=== PATIENT | female | born 1955 | race Caucasian/White ===

== ENCOUNTER 2021-08-03 14:21 | Emergency (ER) | payer MEDICARE, OTHER ==
[~2021-08-03] VITALS: Ht 170.2 cm; Wt 61.0 kg
[~2021-08-03 14:21] MED LIST: HYDR-2145 PO; HYDR-2868 PO; LISI20TA18 PO
[2021-08-03 14:30] VITALS: BP 138/106
--- NOTE | 2021-08-03 15:08 | RAD ---
CT Head W/O Contrast: History: Reason: UNKNOWN TRAUMA, RIGHT FACIAL BRUISING AND SWELLING / Spl. Instructions: / History: Comparison: none Axial images were obtained without contrast. There is mild diffuse atrophy. There is no mass effect, extraaxial fluid collections or hydrocephalu s. There is no gross bleed. Moderate, patchy periventricular and subcortical white matter hypoattenu ation is seen. There is an old infarct in the anterior limb of the external capsule on the left. Ther e is no focal loss of pemberton-white matter distinction to suggest acute ischemia, i.e. stroke. Impression: 1. Atrophy and chronic white matter changes advanced for the patient's age. 2. 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 End impression CT maxillofacial without contrast History: sinus infection Axial helical images of the face were obtained without contrast. Axial and coronal reconstruction was performed. There is a 3.3 cm x 1.8 cm hyperattenuating mass lateral to the right maxilla. The nasal septum is mostly midline. The ostiomeatal complexes are narrow but patent. The paranasal si nuses are clear. The visualized osseous structures appear intact. The orbits appear normal. Impression: 1. Dense mass lateral to the right maxilla is likely hematoma. 2. No acute bony abnormality detected. End impression PQRS Compliance Statement: One or more of the following individualized dose reduction techniques were utilized for this examinat ion: 1. Automated exposure control 2. Adjustment of the mA and/or kV according to patient size 3. Use of iterative reconstruction technique Electronically signed by: James Raya III, MD (08/03/2021 3:05 PM) [facility]
--- NOTE | 2021-08-03 15:13 | PHYS DOC ---
Past History Past Medical History: Hypertension, Other Past Surgical History: Tubal ligation, Other Alcohol Use: Heavy Drug Use: None General Adult HPI: HPI: Patient is a 66 year old female who presents with right-sided facial swelling an d bruising for the past 3 days. Patient states that she saw her face in the mirror 3 days ago and it was significantly swollen with bruising. She denies having any pain. She she does not remember events leading up to the injury. She lives alone in an independent living apartment at [facility]. She denies use of alcohol and drugs. She reports that short-term memory loss is normal for her. She has no other trauma or injuries. Patient denies use of blood thinners. Review of Systems: Review of Systems: 12 systems reviewed. ROS negative except as mentioned in HPI. Allergies: Allergies: Allergies Coded Allergies Type Severity Reaction Last Updated Verified ciprofloxacin Allergy Severe Swelling 09/16/15 No Physical Exam: PE: Constitutional: Well developed, well nourished, no acute distress, non-toxic appearance. HENT: Right maxillary facial swelling and old bruising, bruising extends down the neck. Bilateral external ears normal, oropharynx moist, no oral exudates, nose normal. Eyes: PERRLA, EOMI, conjunctiva normal, no discharge. Neck: Normal range of motion, no tenderness, supple, no stridor. Cardiovascular: Heart rate regular rhythm, no murmur. Lungs & Thorax: Bilateral breath sounds clear to auscultation. Skin: Warm, dry, no rash, no abrasions, no laceration. Back: No tenderness, no CVA tenderness. Extremities: No tenderness, no cyanosis, no clubbing, ROM intact, no edema. Neurologic: Alert and oriented x3, normal motor function, normal sensory function, no focal deficits noted. Current Patient Data: Vital Signs: VS - Last 72 Hours, by Label Date Time Temp Pulse Resp B/P (MAP) Pulse Ox O2 Delivery O2 Flow Rate FiO2 08/03/21 14:30 97.5 84 20 138/106 (117) 95 Room Air Radiology/Procedures: Radiology/Procedures: PROCEDURE: CT HEAD AND MAXILLOFACIAL WO CT Head W/O Contrast: History: Reason: UNKNOWN TRAUMA, RIGHT FACIAL BRUISING AND SWELLING / Spl. Instructions: / History: Comparison: none Axial images were obtained without contrast. There is mild diffuse atrophy. There is no mass effect, extraaxial fluid collections or hydrocephalus. There is no gross bleed. Moderate, patchy periventricular and subcortical white matter hypoattenuation is seen. There is an old infarct in the anterior limb of the external capsule on the left. There is no focal loss of pemberton-white matter distinction to suggest acute ischemia, i.e. stroke. Impression: 1. Atrophy and chronic white matter changes advanced for the patient's age. 2. 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 End impression CT maxillofacial without contrast History: sinus infection Axial helical images of the face were obtained without contrast. Axial and coronal reconstruction was performed. There is a 3.3 cm x 1.8 cm hyperattenuating mass lateral to the right maxilla. The nasal septum is mostly midline. The ostiomeatal complexes are narrow but patent. The paranasal sinuses are clear. The visualized osseous structures appear intact. The orbits appear normal. Impression: 1. Dense mass lateral to the right maxilla is likely hematoma. 2. No acute bony abnormality detected. End impression PQRS Compliance Statement: One or more of the following individualized dose reduction techniques were utilized for this examination: 1. Automated exposure control 2. Adjustment of the mA and/or kV according to patient size 3. Use of iterative reconstruction technique Electronically signed by: James Raya III, MD (08/03/2021 3:05 PM) [facility] Heart Score: C/O Chest Pain: No Course & Med Decision Making: Course & Med Decision Making Pertinent Labs and Imaging studies reviewed. (See chart for details) Well patient denies alcohol and drug use to me on interview, she reveals to Sherin, nursing staff, that she got drunk the day before she noticed her facial trauma. She reports that she occasionally will drink, and when she drinks she experiences memory loss. CT head reveals advanced white matter atrophy for age, as well as an old infarct. No bony abnormalities are seen in the face. There is a large hematoma on the right side. Patient unable to produce urine sample, and wants to leave. Patient will be discharged without obtaining urinalysis. Dragon Disclaimer: Dragobinna Disclaimer: This electronic medical record was generated, in whole or in part, using a voice recognition dictation system. Departure Departure: Impression: Primary Impression: Facial contusion Qualified Codes: S00.83XA - Contusion of other part of head, initial encounter Additional Impression: Diffuse cerebral atrophy Disposition: HOME / SELF CARE / HOMELESS Condition: STABLE Referrals: ANDREW DALEY APRN (PCP) CHINO WATTS MD Patient Instructions: Facial or Scalp Contusion, [id number], How Much is Too Much Alcohol, [id number] Additional Instructions: No fractures are seen on imaging performed today. You do have a large hematoma on your right cheek. Additionally, your CT head revealed degenerative changes diffusely throughout your brain. This could also contribute to your issues with memory loss. A referral for a neurologist was provided to you today. You may call at your convenience to schedule an appointment for further evaluation and management. In the future, it is advisable to refrain from drinking significant amounts of alcohol, to the point that you are at risk of hurting your self. If you wish, you may seek outpatient treatment for alcohol use disorder. Resources were provided to you today. Please follow-up with your primary care provider or visit one of the clinics on the list provided to resume your blood pressure medication. Please return to the emergency department if you develop pain or any new symptoms. KELBY VAZQUEZ Aug 03, 2021 15:13
== END 2021-08-03 16:30 | disposition home or self-care (01) ==
LOC: ER 14:21
DX: S00.83XA Contusion of other part of head, initial encounter (principal); I10 Essential (primary) hypertension; F10.20 Alcohol dependence, uncomplicated; Y90.9 Presence of alcohol in blood, level not specified; W22.8XXA Striking against or struck by other objects, initial encounter; Y93.89 Activity, other specified; Y92.89 Other specified places as the place of occurrence of the external cause; Y99.8 Other external cause status
CPT/HCPCS: 70450; 70486; 99285-25

== ENCOUNTER 2021-08-07 17:15 | Inpatient (IN) | payer MEDICARE ==
[~2021-08-07] VITALS: Ht 170.2 cm; Wt 57.5 kg
--- NOTE | 2021-08-07 18:12 | PHYS DOC ---
Past History Past Medical History: Hypertension, Other (MARIANNE MOREL APRN) Past Surgical History: Tubal ligation, Other (MARIANNE MOREL APRN) Alcohol Use: Occasionally Drug Use: None (MARIANNE MOREL APRN) General Adult EDM: Chief Complaint: MULTIPLE COMPLAINTS HPI: HPI: Patient is a 66-year-old female who presents to the emergency department following a fall that occurred 6 days ago. Patient attempted to be seen in this emergency department on Tuesday but left without being seen due to the wait. Patient is complaining of left wrist pain she states that the pain is mild notes worse with movement. She states that she has not been able to walk following the fall and has been laying on her couch because she loses balance and falls. Patient states that she has chronic low back pain does not feel that she is having any worsening of her pain. She denies any saddle anesthesias, numbness or tingling down her legs, loss of bowel or bladder. (MARIANNE MOREL APRN) Review of Systems: Review of Systems: : See HPI Musculoskeletal: See HPI Integument: Ecchymosis Neurologic: See HPI (MARIANNE MOREL APRN) Allergies: Allergies: Allergies Coded Allergies Type Severity Reaction Last Updated Verified ciprofloxacin Allergy Severe Swelling 08/03/21 No (MARIANNE MOREL APRN) Physical Exam: PE: Constitutional: Well developed, well nourished, no acute distress, non-toxic appearance. [] HENT: Normocephalic, atraumatic, bilateral external ears normal, oropharynx moist, no oral exudates, nose normal. [] Eyes: PERRL, 4 mm bilaterally, EOMI, conjunctiva normal, no discharge. [] Neck: Normal range of motion, no bony spinal tenderness, supple, no stridor, ecchymosis noted to right anterior aspect of neck and lower face Cardiovascular:Heart rate regular rhythm, no murmur [] Lungs & Thorax: Bilateral breath sounds clear to auscultation [] Abdomen: Bowel sounds normal, soft, no tenderness, no masses, no pulsatile masses. [] Skin: Warm, dry, no erythema, no rash. [] Back: No bony spinal tenderness, normal range of motion, no CVA tenderness. [] Extremities: No tenderness, no cyanosis, no clubbing, ROM intact, no edema. [] Left wrist: Range of motion intact, neuro intact, no obvious deformity, no crepitus, no wounds Neurologic: Alert and oriented X 3, normal motor function, normal sensory function, no focal deficits noted. [] Psychologic: Affect normal, judgement normal, mood normal. [] (MARIANNE MOREL APRN) Current Patient Data: Labs: Laboratory Tests Test 08/07/21 18:37 White Blood Count 11.8 x10^3/uL Red Blood Count 4.96 x10^6/uL Hemoglobin 15.3 g/dL Hematocrit 45.7 % Mean Corpuscular Volume 92 fL Mean Corpuscular Hemoglobin 31 pg Mean Corpuscular Hemoglobin Concent 33 g/dL Red Cell Distribution Width 14.4 % Platelet Count 361 x10^3/uL Neutrophils (%) (Auto) 53 % Lymphocytes (%) (Auto) 36 % Monocytes (%) (Auto) 10 % Eosinophils (%) (Auto) 1 % Basophils (%) (Auto) 0 % Neutrophils # (Auto) 6.2 x10^3uL Lymphocytes # (Auto) 4.2 x10^3/uL Monocytes # (Auto) 1.2 x10^3/uL Eosinophils # (Auto) 0.1 x10^3/uL Basophils # (Auto) 0.0 x10^3/uL Sodium Level 139 mmol/L Potassium Level 3.7 mmol/L Chloride Level 99 mmol/L Carbon Dioxide Level 32 mmol/L Anion Gap 8 Blood Urea Nitrogen 13 mg/dL Creatinine 0.8 mg/dL Estimated GFR (Cockcroft-Gault) 71.5 BUN/Creatinine Ratio 16 Glucose Level 104 mg/dL Calcium Level 9.4 mg/dL Total Bilirubin 2.0 mg/dL Aspartate Amino Transf (AST/SGOT) 51 U/L Alanine Aminotransferase (ALT/SGPT) 34 U/L Alkaline Phosphatase 88 U/L Total Protein 8.4 g/dL Albumin 2.8 g/dL Albumin/Globulin Ratio 0.5 Ethyl Alcohol Level < 10 mg/dL (MARIANNE MOREL APRN) EKG: EKG: [] (MARIANNE MOREL APRN) Radiology/Procedures: Radiology/Procedures: []PROCEDURE: WRIST 3V LEFT Three-view left wrist HISTORY: Pain status post fall AP lateral oblique views The visualized osseous structures appear normal. IMPRESSION: No acute findings. Electronically signed by: Lizzy Cordon III, MD (08/07/2021 6:23 PM) [facility] DICTATED AND SIGNED BY: LIZZY CORDON III, MD DATE: 08/07/211820 CC: EMERGENCY,DEPARTMENT; ANDREW DALEY APRN; MARIANNE MOREL APRN ~MTH0 0 PROCEDURE: CT LUMBAR SPINE WO CONTRAST CT cervical spine without contrast. CT lumbar spine without contrast. PQRS statement: CT scans at this facility use dose reduction including either automated exposure control, iterative reconstructions, and /or weight based radiation dosing via mA and kV modification when appropriate to reduce radiation dose to as low as reasonably achievable. HISTORY: Fall, pain. CT cervical spine findings: Craniocervical junction intact. Cervical vertebral body height and alignment intact. Cervical disc osteophytes and uncovertebral facet spurring. Disc herniation contributing to spinal canal and neural frontal stenoses at several levels particularly severe canal stenosis at C4-C5 through C6-7. Lung apices and paraspinal tissues are unremarkable. Cervical carotid artery calcified plaque. IMPRESSION: No acute osseous injury of the cervical spine. Cervical disc disease as described above. CT lumbar spine findings: Lumbar vertebral body height and alignment intact. No fracture. No suspicious bone lesion. There is discogenic bony sclerosis at L4-5 from chronic degenerative disc disease. No spondylolysis defect. Pulmonary emphysema lung bases. Right renal atrophy. Mild bilateral medullary nephrocalcinosis and tiny 2 mm right renal calculus. Extensive calcified plaque of the aorta and iliac arteries with high-grade stenoses of the bifurcation the aorta and iliac arteries noted. Lumbar paraspinal tissues are unremarkable. Multilevel lumbar disc height loss and disc bulges and facet spurring with spinal canal and neural foraminal stenoses with severe spinal canal stenosis at L4-5, moderate to severe spinal canal stenosis at L3-L4, and mild spinal canal stenosis at L5-S1. IMPRESSION: No acute osseous injury lumbar spine. Lumbar disc disease. See above. Electronically signed by: Macie Brito MD (08/07/2021 6:44 PM) [facility] DICTATED AND SIGNED BY: MACIE BRITO MD DATE: 08/07/21 1837 CC: ANDREW DALEY APRN; MARIANNE MOREL APRN ~MTH0 0 (MARIANNE MOREL APRN) Heart Score: C/O Chest Pain: N/A Risk Factors: Risk Factors: DM, Current or recent (<one month) smoker, HTN, HLP, family history of CAD, obesity. Risk Scores: Score 0 - 3: 2.5% MACE over next 6 weeks - Discharge Home Score 4 - 6: 20.3% MACE over next 6 weeks - Admit for Clinical Observation Score 7 - 10: 72.7% MACE over next 6 weeks - Early Invasive Strategies (MARIANNE MOREL APRN) Course & Med Decision Making: Course & Med Decision Making Pertinent Labs and Imaging studies reviewed. (See chart for details) [] Patient presents to the emergency department via EMS for left wrist pain following a fall that occurred 6 days ago. It appears that patient was seen on August 03 following fall and had facial bones and head CT that showed no acute findings. CT scan of patient's head and neck was performed. X-ray of left wrist was also performed. Patient is reporting chronic low back pain but since patient is having difficulty ambulating a CT scan of her lumbar spine was performed. Patient states that she had a CT scan of her head and facial bones already and refuses CT scan of her head but agreed to the CT scan of her cervical and lumbar spine. Per CREAM HAULER, patient has a history of alcohol use and frequent falls. Blood work performed in the ER. Lab work is mostly unremarkabl e although she was noted to have mild leukocytosis with a white blood cell count of 11.8. Patient attempted to walk in the ER and was unable to ambulate. Patient lives at home alone. I spoke with Dr. Morales who agreed to admit the patient under his services for falls. She may need to be evaluated for possible senior living placement or rehab facility. I discussed patient's findings with her as well as treatment plan admission and she is agreeable to admission at this time. Care transferred at this time and bridge orders placed 2032. (MARIANNE MOREL APRN) Dragon Disclaimer: Dragobinna Disclaimer: This electronic medical record was generated, in whole or in part, using a voice recognition dictation system. (MARIANNE MOREL APRN) Departure Departure: Impression: Primary Impression: Falls Qualified Codes: W19.XXXD - Unspecified fall, subsequent encounter Disposition: ADMITTED INPATIENT Admitting Physician: Akhil Morales (MARIANNE MOREL APRN) Condition: GOOD Referrals: ANDREW DALEY APRN (PCP) Attending Signature Attending Signature I have participated in the care of this patient and I have reviewed and agree with all pertinent clinical information above including history, exam, and recommendations. (MELINDA QUINTANILLA MD) MARIANNE MOREL APRN Aug 07, 2021 18:12 MELINDA QUINTANILLA MD Aug 09, 2021 17:10
--- NOTE | 2021-08-07 18:25 | RAD ---
Three-view left wrist HISTORY: Pain status post fall AP lateral oblique views The visualized osseous structures appear normal. IMPRESSION: No acute findings. Electronically signed by: James Raya III, MD (08/07/2021 6:23 PM) [facility]
--- NOTE | 2021-08-07 18:47 | RAD ---
CT cervical spine without contrast. CT lumbar spine without contrast. PQRS statement: CT scans at this facility use dose reduction including either automated exposure cont rol, iterative reconstructions, and /or weight based radiation dosing via mA and kV modification when appropriate to reduce radiation dose to as low as reasonably achievable. HISTORY: Fall, pain. CT cervical spine findings: Craniocervical junction intact. Cervical vertebral body height and alignm ent intact. Cervical disc osteophytes and uncovertebral facet spurring. Disc herniation contributing to spinal canal and neural frontal stenoses at several levels particularly severe canal stenosis at C 4-C5 through C6-7. Lung apices and paraspinal tissues are unremarkable. Cervical carotid artery calci fied plaque. IMPRESSION: No acute osseous injury of the cervical spine. Cervical disc disease as described above. CT lumbar spine findings: Lumbar vertebral body height and alignment intact. No fracture. No suspicio us bone lesion. There is discogenic bony sclerosis at L4-5 from chronic degenerative disc disease. No spondylolysis defect. Pulmonary emphysema lung bases. Right renal atrophy. Mild bilateral medullary nephrocalcinosis and tiny 2 mm right renal calculus. Extensive calcified plaque of the aorta and fifi c arteries with high-grade stenoses of the bifurcation the aorta and iliac arteries noted. Lumbar par aspinal tissues are unremarkable. Multilevel lumbar disc height loss and disc bulges and facet spurri ng with spinal canal and neural foraminal stenoses with severe spinal canal stenosis at L4-5, moderat e to severe spinal canal stenosis at L3-L4, and mild spinal canal stenosis at L5-S1. IMPRESSION: No acute osseous injury lumbar spine. Lumbar disc disease. See above. Electronically signed by: Aleksandr Brito MD (08/07/2021 6:44 PM) [facility]
[2021-08-07 19:07] LABS: BASO % 0 % (0-3); EOS # 0.1 x10^3/uL (0.0-0.7); EOS % 1 % (0-3); HEMATOCRIT 45.7 % (36.0-47.0); HEMOGLOBIN 15.3 g/dL (12.0-15.5); LYMPH # 4.2 x10^3/uL (1.0-4.8); LYMPH % 36 % (24-48); MEAN CORPUSCULAR HEMOGLOBIN 31 pg (25-35); MEAN CORPUSCULAR HGB CONC 33 g/dL (31-37); MEAN CORPUSCULAR VOLUME 92 fL (79-100); MONO # 1.2 x10^3/uL (0.0-1.1); MONO % 10 % (0-9); NEUT # 6.2 x10^3uL (1.8-7.7); NEUT % 53 % (31-73); PLATELET COUNT 361 x10^3/uL (140-400); RED BLOOD COUNT 4.96 x10^6/uL (3.50-5.40); RED CELL DISTRIBUTION WIDTH 14.4 % (11.5-14.5); WHITE BLOOD COUNT 11.8 x10^3/uL (4.0-11.0)
[2021-08-07 19:14] LABS: CALCIUM 9.4 mg/dL (8.5-10.1); CREATININE 0.8 mg/dL (0.6-1.0); GFR 71.5; POTASSIUM 3.7 mmol/L (3.5-5.1)
[2021-08-07 19:20] LABS: ALBUMIN 2.8 g/dL (3.4-5.0); ALBUMIN/GLOBULIN RATIO 0.5 (1.0-1.7); TOTAL PROTEIN 8.4 g/dL (6.4-8.2)
--- NOTE | 2021-08-07 21:25 | NUR ---
The patient, OSMANY GAMBOA, 66 y/o, F admitted by CICI VILLALBA MD, was given written information regarding hospital policies, unit procedures and contact persons. Valuables were checked and left with patient.
[2021-08-07 21:57] LABS: AMPHETAMINE/METHAMPHETAMINE NEG (NEG); BARBITURATES NEG (NEG); BENZODIAZEPINES NEG (NEG); CANNABINOIDS NEG (NEG); COCAINE NEG (NEG); METHADONE NEG (NEG); OPIATES NEG (NEG); PHENCYCLIDINE NEG (NEG)
[2021-08-07] MEDS ORDERED: LISINOPRIL 20 MG TABLET PO SCH (22:00)
[2021-08-07] MEDS ORDERED: ATENOLOL 50 MG TABLET PO ONE (22:00)
[2021-08-07 22:03] LABS: BACTERIA,URINE MANY /HPF (0-FEW); BILIRUBIN,URINE NEG (NEG); CLARITY,URINE CLOUDY; COLOR,URINE YELLOW; GLUCOSE,URINE NEG (NEG); NITRITE,URINE POS (NEG); RBC,URINE OCC /HPF (0-2); SQUAMOUS EPITHELIAL CELL,UR FEW /LPF
[2021-08-07] MEDS: LISINOPRIL 20 MG TABLET PO SCH (22:41)
[2021-08-07 22:58] VITALS: BP 219/216
[2021-08-08 00:22] VITALS: BP 127/95
--- NOTE | 2021-08-08 02:35 | NUR ---
ED reports untreated elevated BP of 229/121 at time of transfer, similar results on arrival to unit; notified, medications given as ordered; BP 125/95 at one hour recheck; very poor historian, states she was prescribed HTN meds but has not refilled in one year, states she does not currently have a doctor and does not know "how to get one"; states for the past week she has been lying on couch at home, using bucket to urinate, however today she was incontinent on the couch as she was unable to stand or transfer herself; reports multiple recent falls at home, extensive bruising noted over entire body and face; ED reports unsuccessful trial of using bedside commode, unable to bear weight or assist; #16 fr koch cath inserted, tolerated well, approx 300ml cloudy yellow urine returned, sample collected and sent to lab; Case mgmt consult ordered to address home safety and self care deficit concerns.
[2021-08-08 03:57] VITALS: BP 151/87
[2021-08-08 07:42] LABS: BASO # 0.1 x10^3/uL (0.0-0.2); BASO % 1 % (0-3); EOS # 0.2 x10^3/uL (0.0-0.7); EOS % 2 % (0-3); HEMATOCRIT 41.2 % (36.0-47.0); LYMPH # 3.4 x10^3/uL (1.0-4.8); LYMPH % 32 % (24-48); MEAN CORPUSCULAR HEMOGLOBIN 31 pg (25-35); MEAN CORPUSCULAR HGB CONC 34 g/dL (31-37); MEAN CORPUSCULAR VOLUME 91 fL (79-100); MONO # 1.1 x10^3/uL (0.0-1.1); MONO % 11 % (0-9); NEUT # 5.9 x10^3uL (1.8-7.7); NEUT % 55 % (31-73); PLATELET COUNT 342 x10^3/uL (140-400); RED BLOOD COUNT 4.51 x10^6/uL (3.50-5.40); RED CELL DISTRIBUTION WIDTH 13.9 % (11.5-14.5); WHITE BLOOD COUNT 10.6 x10^3/uL (4.0-11.0)
[2021-08-08 07:59] LABS: ALBUMIN 2.3 g/dL (3.4-5.0); ALBUMIN/GLOBULIN RATIO 0.5 (1.0-1.7); CALCIUM 8.4 mg/dL (8.5-10.1); CREATININE 0.7 mg/dL (0.6-1.0); GFR 83.5; TOTAL BILIRUBIN 1.3 mg/dL (0.2-1.0)
[2021-08-08 08:04] VITALS: BP 136/71
[2021-08-08 08:05] LABS: POTASSIUM 2.8 mmol/L (3.5-5.1)
[2021-08-08] MEDS: ATENOLOL 50 MG TABLET PO SCH ×2 (08:11→09:19)
[2021-08-08] MEDS ORDERED: MAGNESIUM SULFATE 1GM 100 ML IV ONE (08:30)
[2021-08-08] MEDS: POTASSIUM CHLORIDE 20 MEQ TABLET.ER. PO SCH ×2 (09:18→20:40)
[2021-08-08] MEDS: LISINOPRIL 20 MG TABLET PO SCH (09:19)
--- NOTE | 2021-08-08 09:19 | HP ---
DATE OF SERVICE: 08/08/2021 ADMIT DATE: 08/07/2021 ATTENDING PHYSICIAN: Dr. Morales. CHIEF COMPLAINT: Weakness. HISTORY OF PRESENT ILLNESS: The patient is a 66-year-old female who is a chronic alcoholic. She fell at home. She has been sitting in her chair, unable to get up. She has a bucket for urine. She has also soiled herself and wallowing in her own filth. She is quite debilitated. She has chronic neuropathy. She is admitted then for further treatment and evaluation. She also has noncompliance. She says she has quit drinking a year ago. She is a heavy smoker, a pack of cigarettes a day. Her blood pressure was markedly elevated. She is not on any BP meds in over a year. PAST MEDICAL HISTORY: Significant for essential hypertension, tubal ligation, chronic alcoholism, frequent falls and generalized debilitation. ALLERGIES: SHE HAS ALLERGIES TO CIPROFLOXACIN, EXACT REACTION IS UNCLEAR. CURRENT MEDICATIONS: None. She states that she saw a doctor on the [place] side, but has not had followup. FAMILY HISTORY: Noncontributory. REVIEW OF SYSTEMS: Significant for the recent fall. She has various stages of ecchymosis from previous trauma. Her CT of the head was unremarkable for any acute bleeds. She has COPD. Her appetite is poor. All other systems reviewed and turned out to be negative. PHYSICAL EXAMINATION: GENERAL: When I saw her, this is a cachectic female who appears older than her stated age. VITAL SIGNS: Initial vital signs in the hospital, she had a recorded blood pressure of 216/116. After treatment with the medication, it came down. This morning it is down to 136/71, pulse is 78 and regular. She is afebrile. Oxygen saturation 96% on room air. HEENT: Head is without trauma. There is old ecchymosis along the right face and jaw from previous injury. Oropharynx is clear. Poor dental repair. NECK: Supple, no bruits. LUNGS: Shallow respirations. Minimal rhonchi in the upper airways. CARDIOVASCULAR: Showed regular heart tones. No gallops. ABDOMEN: Soft. EXTREMITIES: Without edema. NEUROLOGIC: Focally intact. Speech is fluent. She is sober. There is no impending DTs. She is nevertheless weak and cannot ambulate independently. PERTINENT LABORATORY STUDIES: The hemoglobin is 15.3 g/dL, white count 11,800. Electrolytes: Sodium 139 mEq, potassium 3.7 mEq, creatinine 0.8. Got fasting blood sugar of 129. Total bilirubin is 2, repeated was down to 1.3. Transaminases were normal. Cervical spine CT and wrist x-ray showed no acute long bone fractures. ASSESSMENT: 1. 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 2. Chronic alcoholism. 3. Labile hypertension. 4. Noncompliance of meds. 5. Underlying depression with anxiety. 6. Generalized debility and neglect. PLAN: 1. Admit to the inpatient unit. 2. Potassium and magnesium replacement. 3. I have restarted blood pressure meds for now and her pressures are better controlled in a stable environment. 4. Diet as tolerated. 5. 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 We will start looking the first thing Tuesday morning. She has a do not resuscitate order per advanced directive, we will respect her wishes. SANDRA DR: Deysi TID: [id number]
[2021-08-08] MEDS: NICOTINE 21MG PATCH. TD SCH (10:40)
[2021-08-08 11:25] VITALS: BP 135/82
[2021-08-08 15:25] VITALS: BP 114/74
[2021-08-08 20:27] VITALS: BP 149/78
[2021-08-09 06:36] VITALS: BP 132/83
[2021-08-09] MEDS: POTASSIUM CHLORIDE 20 MEQ TABLET.ER. PO SCH ×2 (07:40→20:48)
[2021-08-09] MEDS: NICOTINE 21MG PATCH. TD SCH (07:41)
[2021-08-09 07:56] LABS: BASO % 0 % (0-3); EOS # 0.2 x10^3/uL (0.0-0.7); EOS % 2 % (0-3); HEMATOCRIT 42.5 % (36.0-47.0); HEMOGLOBIN 14.3 g/dL (12.0-15.5); LYMPH # 3.8 x10^3/uL (1.0-4.8); LYMPH % 34 % (24-48); MEAN CORPUSCULAR HEMOGLOBIN 31 pg (25-35); MEAN CORPUSCULAR HGB CONC 34 g/dL (31-37); MEAN CORPUSCULAR VOLUME 93 fL (79-100); MONO % 9 % (0-9); NEUT # 6.1 x10^3uL (1.8-7.7); NEUT % 54 % (31-73); PLATELET COUNT 357 x10^3/uL (140-400); RED BLOOD COUNT 4.59 x10^6/uL (3.50-5.40); RED CELL DISTRIBUTION WIDTH 14.4 % (11.5-14.5); WHITE BLOOD COUNT 11.2 x10^3/uL (4.0-11.0)
[2021-08-09 07:57] LABS: CALCIUM 8.6 mg/dL (8.5-10.1); CREATININE 0.9 mg/dL (0.6-1.0); GFR 62.5; POTASSIUM 3.8 mmol/L (3.5-5.1)
--- NOTE | 2021-08-09 08:47 | PN ---
DATE: 08/09/2021 ATTENDING PHYSICIAN: Dr. Morales. SUBJECTIVE: No new complaints. She slept well. OBJECTIVE FINDINGS: VITAL SIGNS: Blood pressure this morning is 132/82, pulse is 60 and regular. She is afebrile. Oxygen saturation 94% on room air. HEENT: Head is without trauma. Pupils are reactive. Sclerae nonicteric. Oropharynx is clear. The bruising, ecchymosis on the right side of the face is starting to fade and dissipating. Swelling is down. NECK: Supple, no bruits. LUNGS: Clear. CARDIOVASCULAR: Showed regular heart tones. No gallop. ABDOMEN: Soft. EXTREMITIES: Without edema. NEUROLOGIC: Very weak. She is unable to ambulate by herself. LABORATORY DATA: Pertinent laboratories, her potassium was replaced up to 3.8 mEq per liter. Creatinine 0.9 mg percent. ASSESSMENT: 1. 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 2. Chronic alcoholism. 3. Labile hypertension, improved in a controlled setting. 4. Noncompliance of meds. 5. Underlying depression with anxiety. 6. Chronic obstructive pulmonary disease. 7. Generalized debility and neglect. PLAN: 1. Continue potassium and magnesium replacement. 2. Blood pressure meds restarted. 3. Diet as tolerated. 4. client operations manager will come in tomorrow to look for subacute rehab placement. She obviously cannot go home by herself. ADRIAN DR: Deysi TID: [id number]
[2021-08-09] MEDS: ATENOLOL 50 MG TABLET PO SCH (08:57)
[2021-08-09 10:50] VITALS: BP_SYST 118; BP_SYST 131; BP_DIAS 68; BP_DIAS 71
[2021-08-09] MEDS: CEPHALEXIN 250 MG CAPSULE PO SCH ×2 (12:49→20:48)
[2021-08-09 15:53] VITALS: BP 126/68
[2021-08-09 19:52] VITALS: BP 135/84
[2021-08-09] MEDS: LACTOBACILLUS RHAMNOSUS GG 1 CAPSULE. PO SCH (20:48)
[2021-08-10] MEDS: LISINOPRIL 20 MG TABLET PO SCH (08:35)
[2021-08-10] MEDS: POTASSIUM CHLORIDE 20 MEQ TABLET.ER. PO SCH ×2 (08:35→19:43)
[2021-08-10] MEDS: LACTOBACILLUS RHAMNOSUS GG 1 CAPSULE. PO SCH ×2 (08:36→19:43)
[2021-08-10] MEDS: ATENOLOL 50 MG TABLET PO SCH (08:36)
[2021-08-10] MEDS: CEPHALEXIN 250 MG CAPSULE PO SCH ×3 (08:36→19:43)
[2021-08-10] MEDS: NICOTINE 21MG PATCH. TD SCH (08:40)
[2021-08-10] MEDS ORDERED: levoFLOXacin 250 MG TABLET PO SCH (09:00)
--- NOTE | 2021-08-10 09:07 | PN ---
DATE: 08/10/2021 ATTENDING PHYSICIAN: Dr. Morales. SUBJECTIVE: The patient is alert. She has very little insight as to what she can and cannot do. She still cannot get up independently. She remains very weak. OBJECTIVE FINDINGS: VITAL SIGNS: Blood pressure is 135/84, pulse 73 and regular, oxygen saturation 95% on room air. She is afebrile. HEENT: Head is without trauma. Pupils are reactive. Sclerae nonicteric. There is varying degrees of ecchymosis on the entire right side of the face extending down to the neck. This is from a previous traumatic incident. LUNGS: Clear. There is minimal rhonchi. CARDIOVASCULAR: Showed regular heart tones. No gallops. ABDOMEN: Soft. EXTREMITIES: Show muscle wasting. King catheter is in place. ASSESSMENT: 1. 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 2. Chronic alcoholism. 3. Labile hypertension, improved in a controlled setting. 4. Noncompliance of medications. 5. Underlying depression. 6. Chronic obstructive pulmonary disease. 7. Generalized debility. 8. 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 PLAN: 1. Continue electrolyte replacement. 2. Blood pressure meds. 3. Diet as tolerated. 4. She cannot go home. There is no safe discharge plan. Physical Therapy will see her today. We will try to get her into a local snf for now. 5. Remove King catheter. Adult diapers. GEORGE/KWAKU DR: Deysi TID: [id number]
--- NOTE | 2021-08-10 11:12 | DS ---
DATE OF DISCHARGE: 08/10/2021 ATTENDING PHYSICIAN: Dr. Morales. FINAL DISCHARGE DIAGNOSES: 1. Alcoholic neuropathy. 2. Generalized debilitation. 3. Chronic alcoholism. 4. Labile hypertension, controlled. 5. Noncompliance of meds. 6. Underlying depression. 7. Chronic obstructive pulmonary disease. 8. Periods of amnesia due to underlying alcohol use. HISTORY AND PHYSICAL: This is a 66-year-old female who paramedics found lying in her own urine and stool. She was so weak she could get out of chair. She was admitted for further treatment and evaluation. She has been noncompliant with meds. The blood pressure was also elevated on admission. PHYSICAL EXAMINATION: Please see my dictated note. PERTINENT LABORATORY AND X-RAY STUDIES: On this admission included a hemoglobin of 15.3 g/dL, white count 11,800. Electrolytes within range. Potassium on admission was 3.7, came down to 2.8 mEq replaces up to 3.8 mEq per liter, sodium 134. Sugars were adequate. Creatinine 0.9 mg percent. Transaminases showed a slight elevation in bilirubin was 2.0. COURSE IN THE HOSPITAL: The patient was admitted. She was started on blood pressure meds. She did well. Physical therapy was able to work with her. She is able to ambulate with some 1:1 assistance. Because of her generalized weakness, she was agreeable to go to a nursing facility. Arrangements were then made for [place] [facility]. Her meds are simple, but have been able to control her blood pressure today included the following: She will continue her scheduled hydralazine 25 mg q.i.d., lisinopril 20 mg p.o. daily and hydrochlorothiazide 25 mg p.o. daily. Strong encouragement to avoid further alcohol and tobacco use, whether or not she will quit drinking, smoking remains to be seen. She is a DNR per advanced directive. The patient was then discharged from our hospital in stable condition with explicit drug and followup care. Total discharge time spent 39 minutes. GEORGE/FABIO AYON: GEORGE/angie TID: [id number]
[2021-08-10 11:20] VITALS: BP 150/84
--- NOTE | 2021-08-10 14:58 | NUR ---
Nursing note : Pt is alert and oriented currently sitting in chair independently eating and drinking lunch. Pt has been compliant with medications and calling for assistance when needed. Pt ambulated with stand by assist for this nurse this shift. Pt has been pleasant for this nurse this shift.
[2021-08-10 15:46] VITALS: BP 143/79
[2021-08-10 19:51] VITALS: BP 141/88
[2021-08-11] MEDS: LACTOBACILLUS RHAMNOSUS GG 1 CAPSULE. PO SCH (08:55)
[2021-08-11] MEDS: CEPHALEXIN 250 MG CAPSULE PO SCH (08:56)
[2021-08-11] MEDS: LISINOPRIL 20 MG TABLET PO SCH (08:56)
[2021-08-11] MEDS: ATENOLOL 50 MG TABLET PO SCH (08:56)
[2021-08-11] MEDS: POTASSIUM CHLORIDE 20 MEQ TABLET.ER. PO SCH (08:59)
[2021-08-11] MEDS: NICOTINE 21MG PATCH. TD SCH (08:59)
[2021-08-11 11:20] VITALS: BP 134/87
--- NOTE | 2021-08-11 12:13 | NUR ---
Discharge note Pt discharged at 1211 via wheel chair accompanied by transportation to [facility]
== END 2021-08-11 12:13 | DRG 74 ==
LOC: ER 17:15 → 1 SOUTH 20:26 → UNDODISIN 08-09 19:00
PROVIDERS: ADMIT Hospitalist; ATTEND Hospitalist
DX: G62.1 Alcoholic polyneuropathy (principal); E83.59 Other disorders of calcium metabolism; F10.26 Alcohol dependence with alcohol-induced persisting amnestic disorder; F17.200 Nicotine dependence, unspecified, uncomplicated; F41.8 Other specified anxiety disorders; G89.29 Other chronic pain; I10 Essential (primary) hypertension; J43.9 Emphysema, unspecified; M48.061 Spinal stenosis, lumbar region without neurogenic claudication; M48.07 Spinal stenosis, lumbosacral region; Z66 Do not resuscitate; Z79.899 Other long term (current) drug therapy; Z91.14 Patient's other noncompliance with medication regimen; Z98.51 Tubal ligation status; Z88.1 Allergy status to other antibiotic agents; Z20.822 Contact with and (suspected) exposure to COVID-19
CPT/HCPCS: 36415; 72125; 72131; 73110; 80048; 80053; 80307; 81001; 82947; 85025; 87077; 87086; 87186; 87426; 99406; G0480; J3475; U0003; 97530; 99285-25

== ENCOUNTER 2021-08-16 05:36 | Inpatient (IN) | payer MEDICARE ==
[~2021-08-16] VITALS: Ht 170.2 cm; Wt 56.2 kg
[2021-08-16] VITALS (12 sets, daily range): BP systolic 141–177; BP diastolic 70–98
--- NOTE | 2021-08-16 05:52 | PHYS DOC ---
Past History Past Medical History: Hypertension, Other (OMID XIAO MD) Past Surgical History: Tubal ligation, Other (OMID XIAO MD) Alcohol Use: Occasionally Drug Use: None (OMID XIAO MD) Adult General Chief Complaint Chief Complaint: ALTERED MENTAL STATUS HPI HPI Patient is a 66-year-old female with a past medical history significant for dementia, COPD, hypertension, and alcohol abuse as well as anxiety and dep ression who presents with a chief complaint from her prison of confusion. Per prison staff she seemed a little more tired and seems confused over her baseline. Nursing staff denied any recent traumas, fevers or illnesses at their are aware of. Patient denies headache, change in vision, chest pain, abdominal pain, nausea, vomiting, diarrhea, dysuria, hematuria. Does endorse some productive cough. Denies any recent travel, known ill contacts. Denies any numbness/weakness/tingling. States that she usually gets around with a walker but is having some more generalized fatigue/weakness than usual and has been falling. (OMID XIAO MD) Review of Systems Review of Systems Review of systems otherwise unremarkable except noted in HPI (OMID XIAO MD) Allergies Allergies Allergies Coded Allergies Type Severity Reaction Last Updated Verified ciprofloxacin Allergy Severe Swelling 08/07/21 No (OMID XIAO MD) Physical Exam Physical Exam Constitutional: Well developed, well nourished, no acute distress, non-toxic appearance. [] HENT: Normocephalic, atraumatic, bilateral external ears normal, oropharynx dry, no oral exudates, nose normal. [] Eyes: PERRLA, EOMI, conjunctiva normal, no discharge. [] Neck: Normal range of motion, no tenderness, supple, no stridor. [] Cardiovascular: Tachycardia Lungs & Thorax: Global bilateral rhonchi and congestion with no wheeze, tachypnea Abdomen: soft, no tenderness, no masses, no pulsatile masses. [] Skin: Warm, dry, no erythema, no rash. [] Back: No tenderness, no CVA tenderness. [] Extremities: No tenderness, no cyanosis, no clubbing, ROM intact, no edema. [] Neurologic: Alert and oriented to person, place and time, able to move all 4 extremities, 4 out of 10 strength, sensation in all extremities to touch, cranial nerves intact, able to sit/stand with help, and could not do it on her own Psychologic: Affect normal,mood normal. [] (OMID XIAO MD) EKG EKG [] (OMID XIAO MD) Radiology/Procedures Radiology/Procedures [] (OMID XIAO MD) Impressions: CTA head and neck with contrast dated 08/16/2021 Comparison: Noncontrast head CT dated 08/03/2021 CLINICAL INDICATION: Altered mental status Technique: a CTA of the head and neck was acquired following the intravenous administration of 75 cc Omnipaque 350. Thin cut coronal and sagittal MIPS reconstructions and 3-D rotational reconstruction. One or more of the following individualized dose reduction techniques were utilized for this examination: 1. Automated exposure control 2. Adjustment of the mA and/or kV according to patient size 3. Use of iterative reconstruction technique. Carotid Stenosis calculations for CT, MR, and conventional angiography are based upon measurements of the distal ICA diameter in accordance with the NASCET methodology. Stenosis calculations for carotid ultrasound studies are derived from validated velocity criteria which are known to correlate with the NASCET methodology. FINDINGS: Contrast bolus is adequate. There is mild to moderate grade narrowing of the left subclavian artery origin, estimated at about 40-50 percent stenosis. Bilateral subclavian arteries are otherwise patent. Calcific plaque of the proximal right vertebral artery resulting in estimated estimated 60-70 percent stenosis. There is also calcific plaque at the origin of the left vertebral with estimated 60-70 percent proximal stenosis. Scattered calcific plaque along the bilateral vertebral arteries with multifocal areas of mild to moderate narrowing to the level the skull base. The left vertebral is somewhat hypoplastic relative to the right side and appears to end in PICA. The intradural right vertebral artery is patent. Basilar artery is well formed. Bilateral CAMPUS MONITOR are patent. There is moderate grade narrowing of the proximal right CAMPUS MONITOR estimated at about 50-60 percent stenosis. Bovine origin of the left common carotid artery with mild calcific plaque at the origin resulting in mild proximal narrowing. Bilateral common carotid arteries are otherwise patent. There is calcific plaque at the bilateral carotid bifurcation and proximal bilateral ICA. This results in mild narrowing bilaterally, estimated at about 30-40 percent on both sides. The internal carotid arteries are otherwise patent to the skull base. There is fairly dense calcific plaque at the cavernous internal carotid artery on the left with mild plaquing on the right. No high-grade stenosis. Mild to moderate narrowing of the cavernous left ICA. The MAXIMILIANO and left MCA branches are patent. There is a patent anterior communicating artery. There is proximal occlusion of the MCA on the right with minimal filling of distal branches. No apparent aneurysm. Diminished enhancement of the MCA territory on the right. Moderate chronic small vessel ischemic changes with remote lacunar infarcts of the left external capsule/basal ganglia, unchanged. Soft tissue hematoma or mass at the right cheek is similar to prior study. Visualized soft tissue structures are otherwise unremarkable. Limited images of the lung apices show moderate emphysema. No acute bony abnormality. Multilevel spondylosis. IMPRESSION: 1. There is a proximal MCA occlusion on the right with a few collateral vessels in the region. Diminished perfusion of the right hemisphere relative the left side. This could be related to acute embolus. Correlate clinically. 2. Scattered atherosclerotic plaquing with estimated 30-40 percent stenosis of the proximal internal carotid arteries bilaterally. 3. Estimated 60-70 percent stenosis of the bilateral proximal vertebral arteries. 4. Estimated 50-60 percent stenosis of the proximal CAMPUS MONITOR on the right. 5. Mild to moderate narrowing of the bilateral cavernous internal carotid arteries, left greater than right. 6. Mild to moderate chronic small vessel ischemic changes and atrophy. Results discussed with ER physician at approximately 9:00 AM on the day of study. Electronically signed by: David Pulliam MD (08/16/2021 9:11 AM) [id number] DICTATED AND SIGNED BY: DAVID PULLIAM MD DATE: 08/16/21 0840 CC: CHANNING ALCANTARA DO; OMID XIAO MD; ANDREW DALEY SUMMER LAW CLERK ~MTH0 0 CT chest abdomen pelvis without contrast dated 08/16/2021. No comparison available. CLINICAL INDICATION: Pain after fall. TECHNIQUE: Contiguous axial imaging the chest abdomen pelvis performed without the administration of IV or oral contrast. One or more of the following individualized dose reduction techniques were utilized for this examination: 1. Automated exposure control 2. Adjustment of the mA and/or kV according to patient size 3. Use of iterative reconstruction technique. FINDINGS: Heart size is mildly enlarged. No significant pericardial effusion. Coronary artery calcifications. Borderline enlarged right paratracheal and free carinal lymph nodes measuring up to 8 mm short axis. No axillary or supraclavicular lymphadenopathy. Thyroid gland is unremarkable. Central airways are patent. Linear bands of increased density at both lung bases, likely scar or atelectasis. There is a noncalcified pulmonary nodule in the right middle lobe on image 70 measures 5 mm. There is also a small subpleural density in the right upper lobe laterally on image 51 that measures about 3 mm. No consolidation or pleural effusion. No pneumothorax. Mild to moderate emphysema. Solid abdominal viscera not well evaluated in the absence of contrast material. No apparent attenuation abnormality of the liver or spleen. Gallbladder unremarkable. Pancreas, adrenal glands unremarkable. The right kidney is atrophic. There is some faint calcifications along the medullary pyramids. A 2 mm calcific stone is noted at the right kidney lower pole. No ureteral stone or hydronephrosis. Unopacified GI tract normal in caliber and contour. No bowel wall thickening. No inflammatory stranding in the mesentery. Appendix normal in caliber. No ascites or lymphadenopathy. There is dense atherosclerotic calcifications of the abdominal aorta with probable high-grade narrowing of the aortic bifurcation and/or proximal common iliac arteries, not well evaluated in the absence of c ontrast material. No periaortic fluid collection. No aneurysm. Images of pelvis show nondistended urinary bladder. There is a small bubble of gas in the bladder lumen. Uterus and adnexa are unremarkable. No significant free fluid. No pelvic adenopathy. Bone windows show no acute finding. Moderate to severe degenerative change at the right hip joint with mild degenerative change in the left. No apparent rib fracture. Multilevel thoracic and lumbar spondylosis. IMPRESSION: 1. No traumatic abnormality of chest abdomen pelvis. 2. Mild to moderate emphysema with bibasilar scar or atelectasis. 3. There are couple of small noncalcified pulmonary nodules on the right, nonspecific. Follow-up imaging may be warranted to ensure stability. 4. Findings suggestive of medullary nephrocalcinosis with small noncalcified stone at the lower pole right kidney. The right kidney is atrophic. 5. Dense atherosclerotic changes of the distal abdominal aorta and bilateral proximal common iliac arteries. A high-grade stenosis cannot be excluded. If indicated, CTA could better evaluate. Electronically signed by: David Pulliam MD (08/16/2021 8:39 AM) [id number] DICTATED AND SIGNED BY: DAVID PULLIAM MD DATE: 08/16/21830 CC: CHANNING ALCANTARA DO; OMID XIAO MD; ANDREW DALEY SUMMER LAW CLERK ~MTH0 0 (CHANNING ALCANTARA DO) Heart Score C/O Chest Pain: No Risk Factors: Risk Factors: DM, Current or recent (<one month) smoker, HTN, HLP, family hi story of CAD, obesity. Risk Scores: Risk Factors: DM, Current or recent (<one month) smoker, HTN, HLP, family history of CAD, obesity. (OMID XIAO MD) Course & Med Decision Making Course & Med Decision Making Patient is a 66-year-old female who presents from prison with a chief complaint of generalized weakness, and reported confusion from prison staff Vital signs notable for tachycardia and hypertension. Physical exam noted above. Patient placed on monitor with IV access established and IV fluid resuscitation begun as patient does appear dry. [] (OMID XIAO MD) Course & Med Decision Making The patient's labs are essentially unremarkable except for lactic acid of 2.4. She appears clinically dry and we are giving the patient IV fluids. Urinalysis is negative for infection. Her EKG is significant for atrial fibrillation. Based on the history provided from her care facility this appears to be a new finding. I will place her on a Cardizem drip as her heart rate is persistently in the high 120s and 130s. CT scans are pending. The patient has been quite sleepy since shift change, but she has been moving around but I did not take note of which extremities are moving. CT angiogram of the head and neck shows significant occlusion of the right MCA. I went in to further evaluate the patient and she has significant flaccidity of the left upper and lower extremity. She is also not answering questions very well. We contacted the prison that she came from and only being alert to herself and answering her birthday is normal. She does not frequently speak very much or answer questions. They did state that she was able to walk until 12 August. She could not walk on that day, but was able to walk on the . The patient was noted to be able to walk yesterday but no exact time was given. It does not sound like they noticed any profound weakness on the left side as we currently see. I am going with the assumption that this occlusion is within the last 24 hours. We are contacting family for guidance about her care as she is unable to answer these questions for us. We have been unable to get a hold of family. Review of the patient's chart at this facility indicates that she has been DNR. Given that status and the fact that we cannot accurately determine last known well or the timing of this MCA occlusion, I do not believe the patient should be transferred to another facility for consideration of thrombectomy. There is really no way for me to determine whether or not she qualifies and is likely that she does not. It is also likely this is not the family's wishes. I will admit the patient to the hospital. I spoke with Dr. Oreilly and he has accepted the patient for admission. The patient is a candidate for anticoagulation due to new onset A. fib. I discussed this with both Dr. Bazzi, neurosurgeon and Dr. Chew, neurologist. Dr. Chew has agreed anticoagulation such as heparin drip would be a good idea. (CHANNING ALCANTARA DO) Dragon Disclaimer Dragon Disclaimer This electronic medical record was generated, in whole or in part, using a voice recognition dictation system. (OMID XIAO MD) NIH Stroke Scale: NIH Stroke Scale Response (Comments) Value Level of Consciousness: 0 Alert/Responsive 0 LOC Questions: 1 Answers one correctly 1 LOC Commands: 1 Performs one task 1 Best Gaze: 0 Normal 0 Visual: 0 No visual loss 0 Facial Palsy: 1 Minor paralysis 1 Motor - Left Arm 3 Limb falls 3 Motor - Right Arm 0 No drift 0 Motor - Left Leg 3 Limb falls 3 Motor: Right Leg 1 Drift but can hold 1 Limb Ataxia: 0 Absent 0 Sensory: 1 Mid to moderate loss 1 Best Language: 1 Mild to mod aphasia 1 Dysathria: 0 Normal 0 Extinction and Inattention: 1 One sensory modality 1 Total 13 Departure Departure: Impression: Primary Impression: Acute right MCA stroke Additional Impressions: Altered mental status Atrial fibrillation with RVR Disposition: ADMITTED INPATIENT Admitting Physician: Chong Oreilly (CHANNING ALCANTARA DO) Condition: GUARDED Referrals: ANDREW DALEY APRN (PCP) Problem Qualifiers OMID XIAO MD Aug 16, 2021 05:52 CHANNING ALCANTARA DO Aug 16, 2021 07:32
[2021-08-16] MEDS ORDERED: IV RINGERS SOLUTION,LACTATED 1,000 ML IV ONE (06:00)
[2021-08-16] MEDS ORDERED: CONTRAST GIVEN. MC PRN (06:00)
[2021-08-16] MEDS ORDERED: IOHEXOL 350 MG/ML 100 ML VIAL. IV ONE (06:00)
--- NOTE | 2021-08-16 06:21 | EKG ---
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
[2021-08-16 06:28] LABS: BASO # 0.1 x10^3/uL (0.0-0.2); BASO % 1 % (0-3); EOS % 0 % (0-3); HEMATOCRIT 41.8 % (36.0-47.0); LYMPH # 1.4 x10^3/uL (1.0-4.8); LYMPH % 12 % (24-48); MEAN CORPUSCULAR HEMOGLOBIN 31 pg (25-35); MEAN CORPUSCULAR HGB CONC 34 g/dL (31-37); MEAN CORPUSCULAR VOLUME 93 fL (79-100); MONO % 8 % (0-9); NEUT # 9.3 x10^3uL (1.8-7.7); NEUT % 80 % (31-73); PLATELET COUNT 403 x10^3/uL (140-400); RED BLOOD COUNT 4.51 x10^6/uL (3.50-5.40); RED CELL DISTRIBUTION WIDTH 14.7 % (11.5-14.5); WHITE BLOOD COUNT 11.7 x10^3/uL (4.0-11.0)
[2021-08-16 06:32] LABS: CALCIUM 8.9 mg/dL (8.5-10.1); CREATININE 1.1 mg/dL (0.6-1.0); GFR 49.5; POTASSIUM 4.3 mmol/L (3.5-5.1)
[2021-08-16 06:34] LABS: BACTERIA,URINE FEW /HPF (0-FEW); BILIRUBIN,URINE NEG (NEG); CLARITY,URINE CLEAR; COLOR,URINE YELLOW; GLUCOSE,URINE NEG (NEG); NITRITE,URINE NEG (NEG); RBC,URINE OCC /HPF (0-2); SQUAMOUS EPITHELIAL CELL,UR FEW /LPF; WBC,URINE 0 /HPF (0-4)
[2021-08-16 06:46] LABS: ALBUMIN 2.6 g/dL (3.4-5.0); ALBUMIN/GLOBULIN RATIO 0.5 (1.0-1.7); MAGNESIUM 1.7 mg/dL (1.8-2.4); TOTAL BILIRUBIN 1.1 mg/dL (0.2-1.0); TOTAL PROTEIN 7.7 g/dL (6.4-8.2)
[2021-08-16] MEDS ORDERED: dilTIAZem 25 MG/5 ML VIAL IVP ONE (07:15)
--- NOTE | 2021-08-16 08:42 | RAD ---
CT chest abdomen pelvis without contrast dated 08/16/2021. No comparison available. CLINICAL INDICATION: Pain after fall. TECHNIQUE: Contiguous axial imaging the chest abdomen pelvis performed without the administration of IV or oral contrast. One or more of the following individualized dose reduction techniques were utilized for this examinat ion: 1. Automated exposure control 2. Adjustment of the mA and/or kV according to patient size 3. Use of iterative reconstruction technique. FINDINGS: Heart size is mildly enlarged. No significant pericardial effusion. Coronary artery calcifications. B orderline enlarged right paratracheal and free carinal lymph nodes measuring up to 8 mm short axis. N o axillary or supraclavicular lymphadenopathy. Thyroid gland is unremarkable. Central airways are patent. Linear bands of increased density at both lung bases, likely scar or atel ectasis. There is a noncalcified pulmonary nodule in the right middle lobe on image 70 measures 5 mm. There is also a small subpleural density in the right upper lobe laterally on image 51 that measures about 3 mm. No consolidation or pleural effusion. No pneumothorax. Mild to moderate emphysema. Solid abdominal viscera not well evaluated in the absence of contrast material. No apparent attenuati on abnormality of the liver or spleen. Gallbladder unremarkable. Pancreas, adrenal glands unremarkabl e. The right kidney is atrophic. There is some faint calcifications along the medullary pyramids. A 2 mm calcific stone is noted at the right kidney lower pole. No ureteral stone or hydronephrosis. Unopacified GI tract normal in caliber and contour. No bowel wall thickening. No inflammatory strandi ng in the mesentery. Appendix normal in caliber. No ascites or lymphadenopathy. There is dense athero sclerotic calcifications of the abdominal aorta with probable high-grade narrowing of the aortic bifu rcation and/or proximal common iliac arteries, not well evaluated in the absence of contrast material . No periaortic fluid collection. No aneurysm. Images of pelvis show nondistended urinary bladder. There is a small bubble of gas in the bladder lum en. Uterus and adnexa are unremarkable. No significant free fluid. No pelvic adenopathy. Bone windows show no acute finding. Moderate to severe degenerative change at the right hip joint wit h mild degenerative change in the left. No apparent rib fracture. Multilevel thoracic and lumbar spon dylosis. IMPRESSION: 1. No traumatic abnormality of chest abdomen pelvis. 2. Mild to moderate emphysema with bibasilar scar or atelectasis. 3. There are couple of small noncalcified pulmonary nodules on the right, nonspecific. Follow-up imag ing may be warranted to ensure stability. 4. Findings suggestive of medullary nephrocalcinosis with small noncalcified stone at the lower pole right kidney. The right kidney is atrophic. 5. Dense atherosclerotic changes of the distal abdominal aorta and bilateral proximal common iliac ar teries. A high-grade stenosis cannot be excluded. If indicated, CTA could better evaluate. Electronically signed by: David Pulliam MD (08/16/2021 8:39 AM) [id number]
[2021-08-16] MEDS: dilTIAZem VIAL 125 MG in IV NORMAL SALINE 100ML 100 ML IV PRN ×2 (08:47→22:45)
--- NOTE | 2021-08-16 09:13 | RAD ---
CTA head and neck with contrast dated 08/16/2021 Comparison: Noncontrast head CT dated 08/03/2021 CLINICAL INDICATION: Altered mental status Technique: a CTA of the head and neck was acquired following the intravenous administration of 75 cc Omnipaque 3 50. Thin cut coronal and sagittal MIPS reconstructions and 3-D rotational reconstruction. One or more of the following individualized dose reduction techniques were utilized for this examinat ion: 1. Automated exposure control 2. Adjustment of the mA and/or kV according to patient size 3. Use of iterative reconstruction technique. Carotid Stenosis calculations for CT, MR, and conventional angiography are based upon measurements of the distal ICA diameter in accordance with the NASCET methodology. Stenosis calculations for carotid ultrasound studies are derived from validated velocity criteria which are known to correlate with th e NASCET methodology. FINDINGS: Contrast bolus is adequate. There is mild to moderate grade narrowing of the left subclavian artery o rigin, estimated at about 40-50 percent stenosis. Bilateral subclavian arteries are otherwise patent. Calcific plaque of the proximal right vertebral artery resulting in estimated estimated 60-70 percen t stenosis. There is also calcific plaque at the origin of the left vertebral with estimated 60-70 pe rcent proximal stenosis. Scattered calcific plaque along the bilateral vertebral arteries with multif ocal areas of mild to moderate narrowing to the level the skull base. The left vertebral is somewhat hypoplastic relative to the right side and appears to end in PICA. The intradural right vertebral art asa is patent. Basilar artery is well formed. Bilateral [facility] are patent. There is moderate grade narro wing of the proximal right [facility] estimated at about 50-60 percent stenosis. Bovine origin of the left common carotid artery with mild calcific plaque at the origin resulting in mild proximal narrowing. Bilateral common carotid arteries are otherwise patent. There is calcific pl aque at the bilateral carotid bifurcation and proximal bilateral ICA. This results in mild narrowing bilaterally, estimated at about 30-40 percent on both sides. The internal carotid arteries are otherw ise patent to the skull base. There is fairly dense calcific plaque at the cavernous internal carotid artery on the left with mild plaquing on the right. No high-grade stenosis. Mild to moderate narrowing of the cavernous left ICA. The MAXIMILIANO and left MCA branches are patent. There is a patent anterior communicating artery. There is p roximal occlusion of the MCA on the right with minimal filling of distal branches. No apparent aneury sm. Diminished enhancement of the MCA territory on the right. Moderate chronic small vessel ischemic changes with remote lacunar infarcts of the left external capsule/basal ganglia, unchanged. Soft tissue hematoma or mass at the right cheek is similar to prior study. Visualized soft tissue str uctures are otherwise unremarkable. Limited images of the lung apices show moderate emphysema. No acu te bony abnormality. Multilevel spondylosis. IMPRESSION: 1. There is a proximal MCA occlusion on the right with a few collateral vessels in the region. Dimini shed perfusion of the right hemisphere relative the left side. This could be related to acute embolus . Correlate clinically. 2. Scattered atherosclerotic plaquing with estimated 30-40 percent stenosis of the proximal internal carotid arteries bilaterally. 3. Estimated 60-70 percent stenosis of the bilateral proximal vertebral arteries. 4. Estimated 50-60 percent stenosis of the proximal [facility] on the right. 5. Mild to moderate narrowing of the bilateral cavernous internal carotid arteries, left greater than right. 6. Mild to moderate chronic small vessel ischemic changes and atrophy. Results discussed with ER physician at approximately 9:00 AM on the day of study. Electronically signed by: David Pulliam MD (08/16/2021 9:11 AM) [id number]
[2021-08-16] MEDS ORDERED: HEPARIN for IV BOLUS 10,000 UNIT/10 ML VIAL. IV PRN ×2 (11:15)
[2021-08-16] MEDS ORDERED: HEPARIN for IV BOLUS 10,000 UNIT/10 ML VIAL. IV ONE (11:15)
[2021-08-16] MEDS: HEPARIN 25,000UTS/250ML PREMIX 250 ML IV PRN (11:42)
[2021-08-16] MEDS ORDERED: ONDANSETRON PF 4 MG/2 ML VIAL. IVP PRN (12:30)
--- NOTE | 2021-08-16 13:00 | NUR ---
The patient, OSMANY GAMBOA, 66 y/o, F admitted by HILARIO LEDEZMA MD, was given written information regarding hospital policies, unit procedures and contact persons. Valuables were checked and left at bedside. Pt arrived with Cardizem running at 6 ml/hr and Heparin running at 8.5 ml/hr. Pt has multiple bruises all over neck and face. Pt came from [facility], spoke with nursing staff at Rehab center and they stated they had no copy of DNR form that pt signed. Pt was then place back to [facility]; will follow up with medical records and case management on Tuesday.
--- NOTE | 2021-08-16 16:26 | HP ---
DATE OF SERVICE: 08/16/2021 ADMIT DATE: 08/16/2021 HISTORY OF PRESENT ILLNESS: The patient is a 66-year-old female patient who was brought to the Emergency Room of [facility] with a chief complaint of confusion. She apparently was more tired and seems more confused over her baseline. The nursing staff denied any recent trauma, fever, illness they are aware of. She denied any headache, change in vision, chest pain, abdominal pain, nausea, vomiting, diarrhea, dysuria, hematuria. She does endorse some productive cough. Denied any recent travel, known ill contact. Denied any numbness, weakness or tingling. According to the nursing staff, she usually gets around with a walker, but is having some more generalized fatigue, weakness than usual and has been falling. She was extensively investigated in the Emergency Room and has had lab work and imaging studies. 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 She has had a CT angio of the head and neck, which showed that there is a proximal, middle cerebral artery occlusion on the right with a few collateral vessels in the region, diminished perfusion of the right hemisphere relative to the left side. This could be related to an acute embolus. She has also scattered atherosclerotic plaquing with estimated 30-40% stenosis of the proximal internal carotid arteries bilaterally, estimated 60-70% stenosis of the bilateral proximal vertebral arteries, estimated 50-60% stenosis of the proximal posterior cerebral artery on the right, [id number] narrowing of the bilateral cavernous internal carotid arteries, left greater than right. She has [id number]-orpcydti chronic small vessel ischemic changes and atrophy. Did have also a CT scan of the chest, abdomen and pelvis without contrast, which basically showed no traumatic abnormality of the chest, abdomen or pelvis, [id number] emphysema, bibasilar scar or atelectasis. There are couple of small noncalcified pulmonary nodules on the right, nonspecific. Followup imaging may be warranted to ensure stability. She has findings suggestive of medullary nephrocalcinosis with small noncalcified stones at the lower pole of the right kidney. The right kidney is atrophic. She has dense atherosclerotic changes of the distal abdominal aorta and bilateral proximal common iliac arteries, high-grade stenosis cannot be excluded. The patient basically has had lab work done including a CBC and CMP together with the prothrombin time, INR and APTT. Her urinalysis was essentially unremarkable. The patient was admitted with a new onset of left-sided hemiplegia due to acute right middle cerebral artery stroke and was found also to be in atrial fibrillation with rapid ventricular response. She was started on heparin drip as well as diltiazem drip and was admitted to ICU to consult the electrical prospecting observer as well as the neurologist as the timing of her stroke is unknown. She was not felt to be a candidate for any further intervention. She is already a DNR and she is not a candidate for thrombectomy. PAST MEDICAL HISTORY: Significant for hypertension, chronic alcoholism and had history of frequent falls. PAST SURGICAL HISTORY: Unremarkable. FAMILY HISTORY: Noncontributory. SOCIAL HISTORY: She is currently a resident at [facility]. She apparently was an ex-smoker and also chronic alcoholic. ALLERGIES: SHE IS ALLERGIC TO CIPROFLOXACIN. MEDICATIONS: She is currently on following medications: She is on hydralazine 25 mg 4 times a day, lisinopril 20 mg once a day and hydrochlorothiazide 25 mg once a day. REVIEW OF SYSTEMS: Unobtainable. PHYSICAL EXAMINATION: GENERAL: The patient is confused, seems to be hallucinating, reaching out to touch things that are not there. There was no pallor, jaundice, cyanosis or thyromegaly. No jugular venous distention. No lower limb edema. VITAL SIGNS: Her heart rate on arrival was 114, regularly irregular, blood pressure was 160/73, temperature was 98.7, respiratory rate was 20 and oxygen saturation was 97%. HEAD, EYES, EARS, NOSE, AND THROAT: Normocephalic. The patient has multiple bruises on the right side of her cheek. NECK: Supple. HEART: Showed regular first and second heart sounds, no gallop, rub or murmur. CHEST: Shows central trachea, equal bilateral chest expansion, air entry, vesicular breath sounds. No crepitation or rhonchi. ABDOMEN: Scaphoid, soft, nontender. NEUROLOGIC: She is awake, alert. Her eyes are deviated to the right. She has flaccid paralysis of her left upper and lower extremities. She is able to move her right upper and right lower extremities without difficulty. LABORATORY DATA: Showed a white cell count of 11,700, hemoglobin 14, hematocrit 42, MCV 93, and platelet count of 103,000 with a manual differential showed 80% polymorphs, 12% lymphocytes and 8% monocytes. Her serum sodium was 138, potassium 4.3, chloride 103, bicarbonate 25, anion gap of 10, BUN 13, creatinine 1.1. Estimated GFR was 49 mL per minute. Her glucose 131, calcium was 8.9, magnesium was 1.7. Total bilirubin, AST, ALT, alkaline phosphatase were normal. Total protein 7.7, albumin was 2.6. Her prothrombin time was 11.6, INR 1.1, APTT was 25. Urinalysis showed the urine was yellow, clear with a pH of 6, specific gravity of 1.020, small amount of protein. The urine was negative for glucose, trace of ketones, negative for blood, nitrite and bilirubin. The urine was negative for leukocyte esterase, occasional rbc's, 0 wbc's, and very few bacteria. DIAGNOSTIC DATA: CT angio of the neck and head showed there is a proximal, middle cerebral artery occlusion on the right with a few collateral vessels in the region, diminished perfusion of the right hemisphere relative to the left side, scattered atherosclerotic plaquing with estimated 30-40% stenosis of the proximal internal carotid artery bilaterally, estimated 60-70% stenosis of the bilateral proximal vertebral arteries, estimated 50-60% stenosis of the proximal posterior cerebral artery on the right, jnsy-[id number] narrowing of the bilateral cavernous internal carotid arteries, left greater than right; ghps-of-igueawtu chronic small vessel ischemic changes and atrophy. CT scan of the chest, abdomen and pelvis without contrast showed no traumatic abnormality of the chest, abdomen or pelvis, tvnq-ag-offljlel emphysema with bibasilar scar or atelectasis. There are couple of small noncalcified pulmonary nodules, findings suggestive of medullary nephrocalcinosis and then atherosclerotic changes of the distal abdominal aorta and bilateral proximal common iliac arteries, high-grade stenosis cannot be excluded. ASSESSMENT AND PLAN: In summary, this is a 66-year-old female patient, admitted with new onset left-sided hemiplegia. She has total occlusion of the right middle cerebral artery; however, the timing of her stroke is unknown and she was not deemed to be a candidate for thrombectomy. She has severe atherosclerotic peripheral arterial disease, chronic obstructive pulmonary disease, hypertension. Plan is to keep the patient n.p.o. She was found to be in atrial fibrillation with rapid ventricular response for which she was started on heparin drip and she was also started on Cardizem drip for new onset atrial fibrillation with rapid ventricular response. We have already consulted the neurologist as well as the electrical prospecting observer. We will also consult physical, occupational and speech therapist. AMBER DR: Venkat TID: [id number]
--- NOTE | 2021-08-16 17:48 | NUR ---
cardiology consult placed.
[2021-08-16] MEDS: AA 4.25 %/CALCIUM/LYTES/D5W 1,000 ML IV SCH (17:59)
--- NOTE | 2021-08-16 18:50 | PDOC2 ---
CONSULT DOS: DATE: 08/16/21 TIME: 18:45 Reason for Consult: Rapid atrial fibrillation. Referring Physician: Dr. Oreilly Chief Complaint Increasing confusion and weakness Source: Chart review, Patient Problem List Problems Medical Problems: (1) Acute right MCA stroke Status: Acute (2) Altered mental status Status: Acute (3) Atrial fibrillation with RVR Status: Acute History of Present Illness The patient is a 66-year-old female who is a resident of a [facility] who reported increased confusion and weakness. She has a history of dementia, hypertension and COPD but her confusion seemed to be greater than baseline. Her work-up included a CTA of the neck and head that showed diffuse moderate disease but also a proximal MCA occlusion. The patient's condition was reportedly discussed with neurology and neurosurgery. She has been started on IV heparin. Additionally she has been in rapid atrial fibrillation and has been treated with heparin as above as well as IV Cardizem for better rate control. Cardiovascular: AFIB, HTN Pulmonary: COPD CENTRAL NERVOUS SYSTEM: Dementia, TIA Psych: Anxiety, Addictions Past Surgical History: Tubal Ligation Family History: Other (Not available) ALCOHOL: other (Reportedly past heavy use) Current Medications Current Medications Iohexol (Omnipaque 350 Mg/ml) 100 ml 1X ONCE IV Last administered on 08/16/21at 06:00; Start 08/16/21 at 06:00; Stop 08/16/21 at 06:01; Status DC Lactated Ringer's 1,000 ml @ 1,000 mls/hr 1X ONCE IV Last administered on 08/16/21at 06:08; Start 08/16/21 at 06:00; Stop 08/16/21 at 06:59; Status DC Info (Do NOT chart on this entry -- for MONITORING) 1 each PRN DAILY PRN MC SEE COMMENTS; Start 08/16/21 at 06:00; Stop 08/18/21 at 05:59 Diltiazem HCl (Cardizem Iv Push) 10 mg 1X ONCE IVP Last administered on 08/16/21at 08:49; Start 08/16/21 at 07:15; Stop 08/16/21 at 07:16; Status DC Diltiazem HCl 125 mg/Sodium Chloride 125 ml @ 5 mls/hr CONT PRN IV PER PROTOCOL Last administered on 08/16/21at 08:47; Start 08/16/21 at 07:30 Heparin Sodium/ Dextrose 250 ml @ 8.5 mls/hr CONT PRN IV SEE I/O RECORD Last administered on 08/16/21at 11:42; Start 08/16/21 at 11:15 Heparin Sodium (Porcine) (Heparin Sodium) 4,300 unit 1X ONCE IV Last administered on 08/16/21at 11:39; Start 08/16/21 at 11:15; Stop 08/16/21 at 11:22; Status DC Heparin Sodium (Porcine) (Heparin Sodium) 2,000 unit PRN Q6HRS PRN IV FOR PTT LESS THAN 24 SECONDS; Start 08/16/21 at 11:15; Status Cancel Heparin Sodium (Porcine) (Heparin Sodium) 2,000 unit PRN Q6HRS PRN IV FOR PTT LEVEL 24 - 27 SECONDS; Start 08/16/21 at 11:15 Heparin Sodium (Porcine) (Heparin Sodium) 1,000 unit PRN Q6HRS PRN IV FOR PTT LEVEL 28 - 37 SECONDS; Start 08/16/21 at 11:15 Ondansetron HCl (Zofran) 4 mg PRN Q4HRS PRN IVP NAUSEA/VOMITING; Start 08/16 at 12:30; Stop 08/17/21 at 12:29 Amino Acids/ Electrolytes/ Dextrose 1,000 ml @ 80 mls/hr [id number] IV Last administered on 08/16/21at 17:59; Start 08/16/21 at 15:00 Active Scripts Active Reported Hydrochlorothiazide Tablet (Hydrochlorothiazide) 25 Mg Tablet 1 Tab PO DAILY Hydralazine Hcl 25 Mg Tablet 1 Tab PO QID Lisinopril 20 Mg Tablet 1 Tab PO DAILY Allergies: Coded Allergies: ciprofloxacin (Unverified Allergy, Severe, Swelling, 08/07/21) General: YES: Fatigue PSYCHOLOGICAL ROS: YES: Disorientation Neurological: YES: Confusion, Weakness General: Other (Confused) Lungs: Other (mildly decreased breath sounds) Heart: Other (Irreg. irreg. rate of 92) Abdomen: Normal bowel sounds VITALS Vital Signs Date Time Temp Pulse Resp B/P (MAP) Pulse Ox O2 Delivery O2 Flow Rate FiO2 08/16/21 18:11 102 19 163/78 (106) 96 Room Air 08/16/21 13:13 98.5 Labs Laboratory Tests Test 08/16/21 05:50 10/31/21 06:00 08/16/21 09:48 08/16/21 10:24 Urine Collection Type U cath Urine Color Yellow Urine Clarity Clear Urine pH 6.0 Urine Specific Dalton 1.020 Urine Protein 100 mg/dl (NEG-TRACE) Urine Glucose (UA) Neg mg/dL (NEG) Urine Ketones (Stick) 15 mg/dL (NEG) Urine Blood Neg (NEG) Urine Nitrite Neg (NEG) Urine Bilirubin Neg (NEG) Urine Urobilinogen Dipstick 1.0 mg/dL (0.2 mg/dL) Urine Leukocyte Esterase Neg (NEG) Urine RBC Occ /HPF (0-2) Urine WBC 0 /HPF (0-4) Urine Squamous Epithelial Cells Few /LPF Urine Bacteria Few /HPF (0-FEW) Urine Mucus Slight /LPF White Blood Count 11.7 x10^3/uL (4.0-11.0) Red Blood Count 4.51 x10^6/uL (3.50-5.40) Hemoglobin 14.0 g/dL (12.0-15.5) Hematocrit 41.8 % (36.0-47.0) Mean Corpuscular Volume 93 fL (79-100) Mean Corpuscular Hemoglobin 31 pg (25-35) Mean Corpuscular Hemoglobin Concent 34 g/dL (31-37) Red Cell Distribution Width 14.7 % (11.5-14.5) Platelet Count 403 x10^3/uL (140-400) Neutrophils (%) (Auto) 80 % (31-73) Lymphocytes (%) (Auto) 12 % (24-48) Monocytes (%) (Auto) 8 % (0-9) Eosinophils (%) (Auto) 0 % (0-3) Basophils (%) (Auto) 1 % (0-3) Neutrophils # (Auto) 9.3 x10^3uL (1.8-7.7) Lymphocytes # (Auto) 1.4 x10^3/uL (1.0-4.8) Monocytes # (Auto) 1.0 x10^3/uL (0.0-1.1) Eosinophils # (Auto) 0.0 x10^3/uL (0.0-0.7) Basophils # (Auto) 0.1 x10^3/uL (0.0-0.2) Sodium Level 138 mmol/L (136-145) Potassium Level 4.3 mmol/L (3.5-5.1) Chloride Level 103 mmol/L (98-107) Carbon Dioxide Level 25 mmol/L (21-32) Anion Gap 10 (6-14) Blood Urea Nitrogen 13 mg/dL (7-20) Creatinine 1.1 mg/dL (0.6-1.0) Estimated GFR (Cockcroft-Gault) 49.5 BUN/Creatinine Ratio 12 (6-20) Glucose Level 131 mg/dL (70-99) Lactic Acid Level 2.4 mmol/L (0.4-2.0) 2.1 mmol/L (0.4-2.0) Calcium Level 8.9 mg/dL (8.5-10.1) Magnesium Level 1.7 mg/dL (1.8-2.4) Total Bilirubin 1.1 mg/dL (0.2-1.0) Aspartate Amino Transf (AST/SGOT) 42 U/L (15-37) Alanine Aminotransferase (ALT/SGPT) 36 U/L (14-59) Alkaline Phosphatase 86 U/L (46-116) Troponin I High Sensitivity 12 ng/L (4-50) Total Protein 7.7 g/dL (6.4-8.2) Albumin 2.6 g/dL (3.4-5.0) Albumin/Globulin Ratio 0.5 (1.0-1.7) SARS-CoV-2 Antigen (Rapid) Negative (NEGATIVE) Test 08/16/21 10:30 Prothrombin Time 11.6 SEC (9.4-11.4) Prothromb Time International Ratio 1.1 (0.9-1.1) Activated Partial Thromboplast Time 25 SEC (23-33) Images CTA of the head and neck as above. Assessment/Plan 1. CVA. Occlusion of the right MCA. Reviewed by the ER with neurology and neurosurgery. Has been placed on IV heparin. 2. Rapid atrial fibrillation. Initial treatment with IV Cardizem for better rate control. Heparin as above for anticoagulation. Rate has significantly improved. 3. Hypertension. Continue present treatments and monitor. 4. COPD. Continue baseline medications. 5. Reported history of baseline dementia. LAZARO LEE MD Aug 16, 2021 18:50
--- NOTE | 2021-08-16 20:00 | NUR ---
PTT result of 109 at 1900. Per protocol Heparin gtt held for 1 hour and then to be decreased by 300units/hr once restarted. Heparin gtt restarted at 5.5ml/hr at 1999. Next PTT check in 6hrs, order placed in computer.
[2021-08-17] VITALS (23 sets, daily range): BP systolic 131–179; BP diastolic 68–101
--- NOTE | 2021-08-17 01:15 | CONS ---
DATE OF CONSULTATION: 08/16/2021 REFERRING PHYSICIAN: Dr. Oreilly. REASON FOR CONSULTATION: Acute stroke. HISTORY OF PRESENT ILLNESS: This is a 66-year-old right-handed female who was admitted through Emergency Room yesterday after she was transferred from [facility] on account of new onset of confusion, weakness of the left upper and lower extremities, slurred speech and frequent falls. According to the nursing staff, the patient has been falling frequently recently. She was found to be confused and disoriented at her [facility]. Currently, the patient is not communicating well and she does not answer many of the questions and it is difficult to obtain any previous history or current problem at this time. Angio CT gram was performed in the Emergency Room and revealed evidence of occlusion of the right proximal MCA. The patient was found to have a flaccid left hemiparesis. The patient was found to have high blood pressure in the Emergency Room. She was recently discharged from [facility] on 08/07/2021 with a diagnoses of generalized debilitating and chronic alcoholism. PAST MEDICAL HISTORY: Significant for hypertension, the patient is not compliant with medication; chronic alcoholism; frequent falls and generalized debilitation at the [facility]. PAST SURGICAL HISTORY: Positive for tubal ligation. FAMILY HISTORY: Noncontributory. SOCIAL HISTORY: The patient is a [facility] resident. There is a history of smoking and alcohol abuse in the past. CURRENT HOME MEDICATIONS: Hydrochlorothiazide 25 mg daily, hydralazine 25 mg q.i.d., lisinopril 20 mg daily. ALLERGIES: CIPROFLOXACIN. REVIEW OF SYSTEMS: A 10-point review of system as mentioned above in history of present illness. PHYSICAL EXAMINATION: GENERAL: Thin female not in any acute distress. She weighs 56.2 kilos. VITAL SIGNS: Blood pressure 164/77, respiratory rate 20, pulse is 92, irregularly irregular. Oxygen saturation 97% on room air. HEENT: Normocephalic, but traumatic with multiple ecchymoses of the left face. NECK: Supple, negative for carotid bruit, lymphadenopathy or thyromegaly. LUNGS: With diminished breath sound. CARDIOVASCULAR: Irregularly irregular rhythm, normal S1, S2. EXTREMITIES: Negative for cyanosis, clubbing or edema. NEUROLOGIC: Mental Status: The patient is awake but follows one-step commands. She is disoriented and somewhat agitated, and does not follow any further commands. She does not answer questions. Cranial nerves: Pupils are equal and sluggishly reactive to light and accommodation. The extraocular movements are slow. There is no nystagmus. There is mild left facial asymmetry. Otherwise, it is difficult to complete evaluation of her cranial nerves; however, the hearing appeared to be intact. Motor examination: Dense flaccid of the left upper and lower extremities with a slight asymmetric left face. Strength also was 4/5 throughout. Sensory examination revealed diminished pinprick and light touch senses over the left upper and lower extremities. Deep tendon reflexes were symmetric and hypoactive with positive Babinski on the left side. LABORATORY DATA: CBC revealed blood cells of 11.7 thousand, hemoglobin 14, hematocrit 41.8, platelet count 403,000. Chemistry revealed sodium of 138, potassium 4.3, chloride 103, CO2 of 25, BUN 13, creatinine 1.1, glucose 131, calcium is 8.9. Potassium is low at 1.7. Liver enzymes not elevated. Troponin level is reported at 12. Coagulation is normal. Urinalysis is negative for urinary tract infections. COVID rapid test is negative. DIAGNOSTIC IMAGING: CT angio of the neck and head revealed proximal MCA occlusion on the right side, atherosclerosis of the proximal internal carotid artery, estimated at 30-40% with stenosis of the proximal [place] on the right side and moderate narrowing of the bilateral cavernous internal carotid arteries and small chronic vessel disease. CT chest and abdomen revealed moderate emphysema with bilateral atelectasis and small noncalcified pulmonary nodules on the right side. The right kidney is atrophic and atherosclerotic changes of the distal abdominal aorta and proximal common iliac arteries. IMPRESSION: 1. Acute onset of left dense hemiparesis, likely secondary to acute stroke of the right middle cerebral artery with possible cardiogenic embolism induced by new onset of atrial fibrillation. 2. Multiple medical problems include hypertension, depressions, anxiety, history of alcoholism and frequent falls. 3. Frequent falls resulted in multiple ecchymotic lesions on the right face. RECOMMENDATION: 1. Continue with current management initiated by Dr. Oreilly. 2. Continue with heparin. 3. Cardiac consult for atrial fibrillation. 4. Echocardiogram. 5. The patient needs extensive PT/OT and speech therapy. GERALDINE/EKT/TANNER DR: GERALDINE/angie TID: [id number]
--- NOTE | 2021-08-17 02:40 | NUR ---
PTT result of 37 at 0240. Per protocol give Heparin bolus of 1000 units and increased gtt by 100units/hr. Heparin gtt increased to 6.5ml/hr at 0240. Next PTT check in 6hrs, order placed in computer.
[2021-08-17] MEDS: HEPARIN for IV BOLUS 10,000 UNIT/10 ML VIAL. IV PRN (02:46)
[2021-08-17] MEDS: AA 4.25 %/CALCIUM/LYTES/D5W 1,000 ML IV SCH ×2 (05:12→17:52)
--- NOTE | 2021-08-17 08:29 | PDOC ---
CARDIO Progress Notes Date & Time Date of Service DATE: 08/17/21 TIME: 08:26 Time of Evaluation 08:26 Subjective Notes drowsy, but arousable Vitals Vitals Vital Signs Date Time Temp Pulse Resp B/P (MAP) Pulse Ox O2 Delivery O2 Flow Rate FiO2 08/17/21 07:00 71 18 159/80 (106) 95 Room Air 08/17/21 06:10 98.7 Weight Weight [ ] Input and Output I.O. Intake and Output 08/17/21 07:00 Intake Total 1000 ml Balance 1000 ml Intake Oral 0 ml IV Total 1000 ml # Voids 3 Laboratory Labs Laboratory Tests Test 08/16/21 05:50 08/16/21 06:00 08/16/21 09:48 08/16/21 10:24 Urine Collection Type U cath Urine Color Yellow Urine Clarity Clear Urine pH 6.0 Urine Specific [place] 1.020 Urine Protein 100 mg/dl (NEG-TRACE) Urine Glucose (UA) Neg mg/dL (NEG) Urine Ketones (Stick) 15 mg/dL (NEG) Urine Blood Neg (NEG) Urine Nitrite Neg (NEG) Urine Bilirubin Neg (NEG) Urine Urobilinogen Dipstick 1.0 mg/dL (0.2 mg/dL) Urine Leukocyte Esterase Neg (NEG) Urine RBC Occ /HPF (0-2) Urine WBC 0 /HPF (0-4) Urine Squamous Epithelial Cells Few /LPF Urine Bacteria Few /HPF (0-FEW) Urine Mucus Slight /LPF White Blood Count 11.7 x10^3/uL (4.0-11.0) Red Blood Count 4.51 x10^6/uL (3.50-5.40) Hemoglobin 14.0 g/dL (12.0-15.5) Hematocrit 41.8 % (36.0-47.0) Mean Corpuscular Volume 93 fL (79-100) Mean Corpuscular Hemoglobin 31 pg (25-35) Mean Corpuscular Hemoglobin Concent 34 g/dL (31-37) Red Cell Distribution Width 14.7 % (11.5-14.5) Platelet Count 403 x10^3/uL (140-400) Neutrophils (%) (Auto) 80 % (31-73) Lymphocytes (%) (Auto) 12 % (24-48) Monocytes (%) (Auto) 8 % (0-9) Eosinophils (%) (Auto) 0 % (0-3) Basophils (%) (Auto) 1 % (0-3) Neutrophils # (Auto) 9.3 x10^3uL (1.8-7.7) Lymphocytes # (Auto) 1.4 x10^3/uL (1.0-4.8) Monocytes # (Auto) 1.0 x10^3/uL (0.0-1.1) Eosinophils # (Auto) 0.0 x10^3/uL (0.0-0.7) Basophils # (Auto) 0.1 x10^3/uL (0.0-0.2) Sodium Level 138 mmol/L (136-145) Potassium Level 4.3 mmol/L (3.5-5.1) Chloride Level 103 mmol/L (98-107) Carbon Dioxide Level 25 mmol/L (21-32) Anion Gap 10 (6-14) Blood Urea Nitrogen 13 mg/dL (7-20) Creatinine 1.1 mg/dL (0.6-1.0) Estimated GFR (Cockcroft-Gault) 49.5 BUN/Creatinine Ratio 12 (6-20) Glucose Level 131 mg/dL (70-99) Lactic Acid Level 2.4 mmol/L (0.4-2.0) 2.1 mmol/L (0.4-2.0) Calcium Level 8.9 mg/dL (8.5-10.1) Magnesium Level 1.7 mg/dL (1.8-2.4) Total Bilirubin 1.1 mg/dL (0.2-1.0) Aspartate Amino Transf (AST/SGOT) 42 U/L (15-37) Alanine Aminotransferase (ALT/SGPT) 36 U/L (14-59) Alkaline Phosphatase 86 U/L (46-116) Troponin I High Sensitivity 12 ng/L (4-50) Total Protein 7.7 g/dL (6.4-8.2) Albumin 2.6 g/dL (3.4-5.0) Albumin/Globulin Ratio 0.5 (1.0-1.7) Coronavirus (COVID-19)(PCR) Positive (NOT DETECTD) SARS-CoV-2 Antigen (Rapid) Negative (NEGATIVE) Test 08/16/21 10:30 08/16/21 18:00 08/17/21 01:55 Prothrombin Time 11.6 SEC (9.4-11.4) Prothromb Time International Ratio 1.1 (0.9-1.1) Activated Partial Thromboplast Time 25 SEC (23-33) 109 SEC (23-33) 37 SEC (23-33) Physical Exams HEENT: Neck Supple W Full Motion Chest: Symmetric Heart: irregularly irregular Abdomen: Soft N/T Extremities: No Edema Neurology: other (drowsy, flaccid paralysis of the left side ) Assessment Assessment 1. Acute CVA; CTA with right proximal MCA occlusion. on IV heparin. as per neuro 2. AFIB with RVR; rate controlled on Cardizem gtt 3. Hypertension; mildly elevated 4. COPD; stable 5. Encephalopathy with underlying dementia 6. COVID + Recommendations Lipids Secondary prevention Statin when able to take PO Cardizem for rate control; convert to PO when able to take oral Continue anticoagulation with heparin gtt Allow for higher baseline blood pressure Echocardiogram Supportive care Rehab modalities JAMES AUSTIN APRN Aug 17, 2021 08:29
[2021-08-17 09:26] LABS: HEMATOCRIT 39.7 % (36.0-47.0); HEMOGLOBIN 13.3 g/dL (12.0-15.5); RED BLOOD COUNT 4.31 x10^6/uL (3.50-5.40); RED CELL DISTRIBUTION WIDTH 14.6 % (11.5-14.5); WHITE BLOOD COUNT 11.5 x10^3/uL (4.0-11.0)
[2021-08-17 09:52] LABS: ALBUMIN 2.1 g/dL (3.4-5.0); ALBUMIN/GLOBULIN RATIO 0.4 (1.0-1.7); CALCIUM 8.2 mg/dL (8.5-10.1); CREATININE 0.9 mg/dL (0.6-1.0); GFR 62.5; POTASSIUM 3.9 mmol/L (3.5-5.1); TOTAL BILIRUBIN 0.8 mg/dL (0.2-1.0); TOTAL PROTEIN 6.8 g/dL (6.4-8.2)
--- NOTE | 2021-08-17 10:26 | NUR ---
PTT is 40 so no change in gtt WCTM
--- NOTE | 2021-08-17 17:01 | PN ---
DATE: 08/17/2021 SUBJECTIVE: The patient is resting, slightly propped up in bed, in no apparent distress. She is somewhat lethargic, but arousable. She does open her eyes and sometimes mouth some words, continued to have flaccid paralysis of the left lower extremity. OBJECTIVE: GENERAL: When I examined her, there was no pallor, jaundice, cyanosis or thyromegaly. No jugular venous distention. No limb edema. VITAL SIGNS: Her heart rate was 67, blood pressure was 160/83, temperature was 98.9, respiratory rate was 18 and oxygen saturation was 98% on room air. HEAD, EYES, EARS, NOSE, AND THROAT: Normocephalic, atraumatic. NECK: Supple. HEART: Showed normal first and second heart sounds, no gallop or murmur. CHEST: Clear to auscultation, no crepitation or rhonchi. ABDOMEN: Distended, soft, nontender. NEUROLOGIC: She is lethargic, but arousable. All cranial nerves intact. She has flaccid left-sided hemiplegia. Her intake was 1000, no output was recorded. LABORATORY DATA: Her lab work this morning showed a white cell count of 11,500, hemoglobin 13, hematocrit 39, MCV 92 and platelet count of 349,000. Her chemistry showed a serum sodium 133, potassium 3.8, chloride 100, bicarbonate 26, anion gap of 7, BUN of 15, creatinine 0.9. Estimated GFR was 62 mL per minute. Her glucose 134, calcium was 8.2. Total bilirubin, AST, ALT, alkaline phosphatase were normal. Total protein 6.8, albumin 2.1. ASSESSMENT: 1. New onset left-sided hemiplegia with total occlusion of the right middle cerebral artery. However, the timing of her stroke is unknown and she was not deemed to be a candidate for thrombectomy or thrombolytic therapy. 2. She has severe atherosclerotic peripheral arterial disease. 3. Chronic obstructive pulmonary disease. 4. Hypertension. 5. Alcoholism. 6. New onset atrial fibrillation with rapid ventricular response. 7. Dysphagia. PLAN: To continue with heparin drip, continue with Cardizem drip. Continue with the Clinimix. Apparently, the family opted for hospice care. We have already consulted our renal case manager to decide on further management accordingly. GABE/KATHERINE DR: GABE/angie TID: [id number]
[2021-08-17] MEDS: HEPARIN 25,000UTS/250ML PREMIX 250 ML IV PRN (20:05)
[2021-08-18] VITALS (26 sets, daily range): BP systolic 97–187; BP diastolic 61–96
--- NOTE | 2021-08-18 01:54 | PN ---
DATE: 08/17/2021 SUBJECTIVE: The patient is resting comfortably in bed ICU 3. She is drowsy, but arousable. Able to say some words, but does not follow any commands. OBJECTIVE: GENERAL: Well-developed, thin female not in acute distress. VITAL SIGNS: Blood pressure 169/79, respiratory rate 13, pulse is 87 and irregular, temperature 98.9, oxygen saturation is 93% on room air. HEENT: Normocephalic, atraumatic, otherwise unremarkable. NECK: Supple. Negative for carotid bruit, lymphadenopathy or thyromegaly. LUNGS: With diminished breath sounds. No wheezing or rales. CARDIOVASCULAR: Regular rhythm. Normal S1, S2. ABDOMEN: Soft. Bowel sounds positive. EXTREMITIES: Negative for cyanosis, clubbing or pedal edema. NEUROLOGIC: The patient is drowsy, but arousable, does not follow any commands. Pupils are equal and sluggishly reactive to light. There is mild left facial asymmetry, otherwise unchanged. Motor: The patient had dense left hemiparesis and left dense sensory deficit. Deep tendon reflexes were symmetric and hypoactive with a positive Babinski on the left side. LABORATORY DATA: CBC revealed white blood cells of 11.5 thousand, hemoglobin 13.3, hematocrit 39.7, platelet count 349,000. Chemistry revealed sodium of 133, potassium 3.9, chloride 100, CO2 of 26, BUN 15, creatinine 0.9, glucose 134, calcium 8.2. Liver enzymes are normal. Lipid profile unremarkable except for lower HDL. Urinalysis negative for urinary tract infection. Serology: COVID PCR is positive. IMPRESSION: 1. Status post acute stroke, presented with dense left hemiparesis and hemisensory deficits with speech dysfunction and possible dysphagia. 2. Right middle cerebral artery occlusion and atrial fibrillation may have contributed to the current acute stroke. 3. Multiple medical problems include history of alcoholism, hypertension, chronic obstructive pulmonary disease, and positive COVID-19. RECOMMENDATIONS: Continue with current medical care and cardiac recommendations including echocardiogram. Rehabilitation, speech therapy to evaluate possible dysphagia. Agree with hospice consultations. Prognosis is guarded. KIRT DR: Stacey TID: [id number]
[2021-08-18] MEDS: AA 4.25 %/CALCIUM/LYTES/D5W 1,000 ML IV SCH ×2 (03:36→16:31)
[2021-08-18 08:13] LABS: HEMATOCRIT 42.3 % (36.0-47.0); HEMOGLOBIN 13.9 g/dL (12.0-15.5); RED BLOOD COUNT 4.54 x10^6/uL (3.50-5.40); RED CELL DISTRIBUTION WIDTH 14.4 % (11.5-14.5); WHITE BLOOD COUNT 12.6 x10^3/uL (4.0-11.0)
[2021-08-18 08:25] LABS: ALBUMIN 2.2 g/dL (3.4-5.0); ALBUMIN/GLOBULIN RATIO 0.5 (1.0-1.7); CALCIUM 8.3 mg/dL (8.5-10.1); CREATININE 0.7 mg/dL (0.6-1.0); GFR 83.5; POTASSIUM 4.2 mmol/L (3.5-5.1); TOTAL BILIRUBIN 0.7 mg/dL (0.2-1.0)
--- NOTE | 2021-08-18 08:30 | NUR ---
Family has opted for hospice care and no aggressive therapies, echo has been cancelled.
--- NOTE | 2021-08-18 08:30 | NUR ---
this am PTT is 39. Per protocol no changes in heparin dose. Repeat ptt in 24 hours.
--- NOTE | 2021-08-18 08:55 | PDOC ---
CARDIO Progress Notes Date & Time Date of Service DATE: 08/18/21 TIME: 08:39 Time of Evaluation 08:39 Subjective Notes No complaints Vitals Vitals Vital Signs Date Time Temp Pulse Resp B/P (MAP) Pulse Ox O2 Delivery O2 Flow Rate FiO2 08/18/21 08:01 72 18 159/61 (93) 97 Room Air 08/18/21 07:01 98.6 08/18/21 00:17 2.0 Weight Weight [ ] Input and Output I.O. Intake and Output 08/18/21 07:00 Intake Total 921 ml Output Total 1945 ml Balance -1024 ml Intake Oral 0 ml Other 921 ml Output Urine Total 1945 ml # Voids 1 Laboratory Labs Laboratory Tests Test 08/16/21 09:48 08/16/21 10:24 08/16/21 10:30 08/16/21 18:00 Coronavirus (COVID-19)(PCR) Positive (NOT DETECTD) SARS-CoV-2 Antigen (Rapid) Negative (NEGATIVE) Lactic Acid Level 2.1 mmol/L (0.4-2.0) Prothrombin Time 11.6 SEC (9.4-11.4) Prothromb Time International Ratio 1.1 (0.9-1.1) Activated Partial Thromboplast Time 25 SEC (23-33) 109 SEC (23-33) Test 08/17/21 01:55 08/17/21 09:11 08/17/21 18:00 08/18/21 07:42 Activated Partial Thromboplast Time 37 SEC (23-33) 40 SEC (23-33) 39 SEC (23-33) White Blood Count 11.5 x10^3/uL (4.0-11.0) 12.6 x10^3/uL (4.0-11.0) Red Blood Count 4.31 x10^6/uL (3.50-5.40) 4.54 x10^6/uL (3.50-5.40) Hemoglobin 13.3 g/dL (12.0-15.5) 13.9 g/dL (12.0-15.5) Hematocrit 39.7 % (36.0-47.0) 42.3 % (36.0-47.0) Mean Corpuscular Volume 92 fL (79-100) 93 fL (79-100) Mean Corpuscular Hemoglobin 31 pg (25-35) 31 pg (25-35) Mean Corpuscular Hemoglobin Concent 34 g/dL (31-37) 33 g/dL (31-37) Red Cell Distribution Width 14.6 % (11.5-14.5) 14.4 % (11.5-14.5) Platelet Count 349 x10^3/uL (140-400) 350 x10^3/uL (140-400) Sodium Level 133 mmol/L (136-145) Potassium Level 3.9 mmol/L (3.5-5.1) Chloride Level 100 mmol/L (98-107) Carbon Dioxide Level 26 mmol/L (21-32) Anion Gap 7 (6-14) Blood Urea Nitrogen 15 mg/dL (7-20) Creatinine 0.9 mg/dL (0.6-1.0) Estimated GFR (Cockcroft-Gault) 62.5 BUN/Creatinine Ratio 17 (6-20) Glucose Level 134 mg/dL (70-99) Calcium Level 8.2 mg/dL (8.5-10.1) Total Bilirubin 0.8 mg/dL (0.2-1.0) Aspartate Amino Transf (AST/SGOT) 37 U/L (15-37) Alanine Aminotransferase (ALT/SGPT) 29 U/L (14-59) Alkaline Phosphatase 68 U/L (46-116) Total Protein 6.8 g/dL (6.4-8.2) Albumin 2.1 g/dL (3.4-5.0) Albumin/Globulin Ratio 0.4 (1.0-1.7) Triglycerides Level 52 mg/dL (0-150) Cholesterol Level 125 mg/dL (0-200) LDL Cholesterol, Calculated 85 mg/dL (0-100) VLDL Cholesterol, Calculated 10 mg/dL (0-40) Non-HDL Cholesterol Calculated 95 mg/dL (0-129) HDL Cholesterol 30 mg/dL (40-60) Cholesterol/HDL Ratio 4.0 Coronavirus (COVID-19)(PCR) Not detected (NOT DETECTD) Microbiology Micro Microbiology 08/16/21 Blood Culture - Preliminary, Resulted NO GROWTH AFTER 1 DAY... Physical Exams HEENT: Neck Supple W Full Motion Chest: Symmetric Lungs: Clear to Auscultation Heart: irregularly irregular (AFIB, rate controlled ) Abdomen: Soft N/T Extremities: No Edema Neurology: alert, follow commands, other (drowsy, flaccid paralysis of the left side ) Assessment Assessment 1. Acute CVA; CTA with right proximal MCA occlusion. on IV heparin. as per neuro 2. AFIB with RVR; rate controlled on Cardizem gtt 3. Hypertension; mildly elevated 4. COPD; stable 5. Encephalopathy with underlying dementia 6. COVID + Recommendations Secondary prevention Statin when able to take PO Cardizem for rate control; convert to PO when able to take oral Anticoagulated with heparin gtt Supportive care Rehab modalities JAMES AUSTIN APRN Aug 18, 2021 08:55
--- NOTE | 2021-08-18 09:59 | PN ---
SUBJECTIVE: The patient has no new medical or neurological complaints. She is able to say some words. OBJECTIVE: GENERAL: Thin female, in acute distress. She weighs 56.2 kilos. VITAL SIGNS: Blood pressure 159/61, respiratory rate 18, pulse is 72 and oxygen saturation 97% on room air. HEENT: The patient has ecchymosis over the right face secondary to recent fall. Otherwise, unremarkable. NECK: Supple. Negative for carotid bruit, lymphadenopathy or thyromegaly. LUNGS: Diminished breath sounds with no wheezing or rales. CARDIOVASCULAR: Regular rhythm. Normal S1, S2. ABDOMEN: Soft. Bowel sounds positive. EXTREMITIES: Negative for cyanosis, clubbing or pedal edema. NEUROLOGIC: Mental status: The patient is drowsy, but arousable. She says some words, but she does not communicate well. Further evaluation is limited at this time. Cranial nerves: Pupils are equal and reactive to light and accommodation. The patient has a right gaze all the time with slow eye movement. There is no facial asymmetry at this time. The hearing appeared to be intact. Motor examination: The patient has flaccid dense left hemiparesis. The strength also was 4/5 throughout. Sensory examination revealed diminished pinprick and light touch senses consistent with left hemisensory deficits. Deep tendon reflexes were asymmetric and hypoactive with absent Achilles responses. Gait not tested. IMPRESSION: 1. Status post acute stroke resulted in dense left hemiparesis with left hemisensory deficit likely secondary to middle cerebral artery occlusion; however, cardiac embolism should be considered as well. 2. Multiple medical problems include hypertension, new onset of atrial fibrillation and chronic obstructive pulmonary disease. 3. Negative PCR for COVID-19. RECOMMENDATIONS: 1. Continue with current management initiated by Dr. Oreilly. 2. The patient needs long treatment with anticoagulant as she continues to have atrial fibrillation. 3. Agree with hospice care. BLOSSOM DR: Stacey TID: [id number]
--- NOTE | 2021-08-18 12:54 | PN ---
DATE: 08/18/2021 SUBJECTIVE: The patient is resting, slightly propped up in bed, in no apparent respiratory distress. She continued to have right-sided conjugate gaze and left-sided hemiplegia. She continues to be in AFib, on Cardizem drip. Her heart rate and blood pressure well controlled. She is on heparin drip and also on Clinimix for nutrition. Apparently, her family wanted her to go on hospice and not want any invasive procedure. OBJECTIVE: GENERAL: When I examined her, she looked well and was clearly in no apparent respiratory distress. No pallor, jaundice, cyanosis or thyromegaly. No jugular venous distention. No lower limb edema. VITAL SIGNS: Her heart rate was 67, blood pressure is 140/67, temperature was 98.6, respiratory rate was 16 and oxygen saturation was 97% on room air. HEAD, EYES, EARS, NOSE, AND THROAT: Normocephalic, atraumatic. NECK: Supple. HEART: Normal first and second heart sounds, no gallop, rub or murmur. CHEST: Shows central trachea, equal bilateral chest expansion, air entry, vesicular breath sounds. No crepitation or rhonchi. ABDOMEN: Scaphoid, soft, nontender. NEUROLOGIC: She is awake, alert, opens eyes, respond at times. She has right sided conjugate gaze and left sided hemiplegia. Her intake was 900, output was 1945. LABORATORY DATA: As of this morning, her white cell count was up to 12,600, hemoglobin 14, hematocrit 42, MCV 93 and platelet count 350,000. Serum sodium was 131, potassium 4.2, chloride 99, bicarbonate 28, anion gap of 6, BUN 24, creatinine 0.7. Estimated GFR was 83 mL per minute. Her glucose 105, calcium was 8.3. Total bilirubin, AST, ALT, alkaline phosphatase were normal. Total protein 7, albumin was 2.2. ASSESSMENT: 1. New onset left-sided hemiplegia with total occlusion of the right middle cerebral artery. However, the timing of her stroke is unknown and she was not a candidate for thrombectomy or thrombolytic therapy. 2. She has severe atherosclerotic peripheral arterial disease. 3. Chronic obstructive pulmonary disease. 4. Hypertension. 5. Alcoholism. 6. New onset atrial fibrillation with rapid ventricular response. 7. Dysphagia. PLAN: To continue with Cardizem drip, continue with heparin drip, continue with Clinimix. Await the evaluation by the speech and language pathologist. GABE/KWAKU DR: Venkat TID: [id number]
[2021-08-18] MEDS: dilTIAZem VIAL 125 MG in IV NORMAL SALINE 100ML 100 ML IV PRN (14:36)
--- NOTE | 2021-08-18 17:00 | NUR ---
Rebeca with speech here to do swallow study.
[2021-08-19] VITALS (24 sets, daily range): BP systolic 146–187; BP diastolic 48–107
[2021-08-19] MEDS: AA 4.25 %/CALCIUM/LYTES/D5W 1,000 ML IV SCH (04:48)
[2021-08-19 07:02] LABS: ALBUMIN 2.3 g/dL (3.4-5.0); ALBUMIN/GLOBULIN RATIO 0.5 (1.0-1.7); CALCIUM 8.4 mg/dL (8.5-10.1); CREATININE 0.8 mg/dL (0.6-1.0); GFR 71.5; POTASSIUM 4.3 mmol/L (3.5-5.1); TOTAL BILIRUBIN 0.7 mg/dL (0.2-1.0); TOTAL PROTEIN 7.3 g/dL (6.4-8.2)
[2021-08-19 07:03] LABS: HEMATOCRIT 39.9 % (36.0-47.0); HEMOGLOBIN 13.4 g/dL (12.0-15.5); RED BLOOD COUNT 4.31 x10^6/uL (3.50-5.40); RED CELL DISTRIBUTION WIDTH 14.2 % (11.5-14.5); WHITE BLOOD COUNT 14.1 x10^3/uL (4.0-11.0)
[2021-08-19] MEDS: HEPARIN for IV BOLUS 10,000 UNIT/10 ML VIAL. IV PRN (07:46)
--- NOTE | 2021-08-19 08:41 | PDOC ---
CARDIO Progress Notes Date & Time Date of Service DATE: 08/19/21 TIME: 08:37 Time of Evaluation 08:37 Subjective Notes No chest pain, shortness of breath Vitals Vitals Vital Signs Date Time Temp Pulse Resp B/P (MAP) Pulse Ox O2 Delivery O2 Flow Rate FiO2 08/19/21 07:00 90 18 166/73 (104) 95 Room Air 08/19/21 05:18 98.8 08/18/21 00:17 2.0 Weight Weight [ ] Input and Output I.O. Intake and Output 08/19/21 07:00 Intake Total 2324 ml Output Total 2000 ml Balance 324 ml Intake Oral 200 ml IV Total 2124 ml Output Urine Total 2000 ml # Voids 1 Laboratory Labs Laboratory Tests Test 08/17/21 09:11 08/17/21 18:00 08/18/21 07:42 08/18/21 13:30 White Blood Count 11.5 x10^3/uL (4.0-11.0) 12.6 x10^3/uL (4.0-11.0) Red Blood Count 4.31 x10^6/uL (3.50-5.40) 4.54 x10^6/uL (3.50-5.40) Hemoglobin 13.3 g/dL (12.0-15.5) 13.9 g/dL (12.0-15.5) Hematocrit 39.7 % (36.0-47.0) 42.3 % (36.0-47.0) Mean Corpuscular Volume 92 fL (79-100) 93 fL (79-100) Mean Corpuscular Hemoglobin 31 pg (25-35) 31 pg (25-35) Mean Corpuscular Hemoglobin Concent 34 g/dL (31-37) 33 g/dL (31-37) Red Cell Distribution Width 14.6 % (11.5-14.5) 14.4 % (11.5-14.5) Platelet Count 349 x10^3/uL (140-400) 350 x10^3/uL (140-400) Activated Partial Thromboplast Time 40 SEC (23-33) 39 SEC (23-33) Sodium Level 133 mmol/L (136-145) 131 mmol/L (136-145) Potassium Level 3.9 mmol/L (3.5-5.1) 4.2 mmol/L (3.5-5.1) Chloride Level 100 mmol/L (98-107) 99 mmol/L (98-107) Carbon Dioxide Level 26 mmol/L (21-32) 26 mmol/L (21-32) Anion Gap 7 (6-14) 6 (6-14) Blood Urea Nitrogen 15 mg/dL (7-20) 24 mg/dL (7-20) Creatinine 0.9 mg/dL (0.6-1.0) 0.7 mg/dL (0.6-1.0) Estimated GFR (Cockcroft-Gault) 62.5 83.5 BUN/Creatinine Ratio 17 (6-20) 34 (6-20) Glucose Level 134 mg/dL (70-99) 105 mg/dL (70-99) Calcium Level 8.2 mg/dL (8.5-10.1) 8.3 mg/dL (8.5-10.1) Total Bilirubin 0.8 mg/dL (0.2-1.0) 0.7 mg/dL (0.2-1.0) Aspartate Amino Transf (AST/SGOT) 37 U/L (15-37) 37 U/L (15-37) Alanine Aminotransferase (ALT/SGPT) 29 U/L (14-59) 27 U/L (14-59) Alkaline Phosphatase 68 U/L (46-116) 69 U/L (46-116) Total Protein 6.8 g/dL (6.4-8.2) 7.0 g/dL (6.4-8.2) Albumin 2.1 g/dL (3.4-5.0) 2.2 g/dL (3.4-5.0) Albumin/Globulin Ratio 0.4 (1.0-1.7) 0.5 (1.0-1.7) Triglycerides Level 52 mg/dL (0-150) Cholesterol Level 125 mg/dL (0-200) LDL Cholesterol, Calculated 85 mg/dL (0-100) VLDL Cholesterol, Calculated 10 mg/dL (0-40) Non-HDL Cholesterol Calculated 95 mg/dL (0-129) HDL Cholesterol 30 mg/dL (40-60) Cholesterol/HDL Ratio 4.0 Coronavirus (COVID-19)(PCR) Not detected (NOT DETECTD) Not detected (NOT DETECTD) Test 08/19/21 05:43 White Blood Count 14.1 x10^3/uL (4.0-11.0) Red Blood Count 4.31 x10^6/uL (3.50-5.40) Hemoglobin 13.4 g/dL (12.0-15.5) Hematocrit 39.9 % (36.0-47.0) Mean Corpuscular Volume 92 fL (79-100) Mean Corpuscular Hemoglobin 31 pg (25-35) Mean Corpuscular Hemoglobin Concent 34 g/dL (31-37) Red Cell Distribution Width 14.2 % (11.5-14.5) Platelet Count 353 x10^3/uL (140-400) Activated Partial Thromboplast Time 30 SEC (23-33) Sodium Level 128 mmol/L (136-145) Potassium Level 4.3 mmol/L (3.5-5.1) Chloride Level 96 mmol/L (98-107) Carbon Dioxide Level 26 mmol/L (21-32) Anion Gap 6 (6-14) Blood Urea Nitrogen 23 mg/dL (7-20) Creatinine 0.8 mg/dL (0.6-1.0) Estimated GFR (Cockcroft-Gault) 71.5 BUN/Creatinine Ratio 29 (6-20) Glucose Level 104 mg/dL (70-99) Calcium Level 8.4 mg/dL (8.5-10.1) Total Bilirubin 0.7 mg/dL (0.2-1.0) Aspartate Amino Transf (AST/SGOT) 39 U/L (15-37) Alanine Aminotransferase (ALT/SGPT) 29 U/L (14-59) Alkaline Phosphatase 69 U/L (46-116) Total Protein 7.3 g/dL (6.4-8.2) Albumin 2.3 g/dL (3.4-5.0) Albumin/Globulin Ratio 0.5 (1.0-1.7) Microbiology Micro Microbiology 08/16/21 Blood Culture - Preliminary, Resulted NO GROWTH AFTER 2 DAYS... Physical Exams HEENT: Neck Supple W Full Motion Chest: Symmetric Lungs: Clear to Auscultation Heart: irregularly irregular (AFIB, rate controlled ) Abdomen: Soft N/T Extremities: No Edema Neurology: alert, follow commands, other (left side paralysis ) Assessment Assessment 1. Acute CVA; CTA with right proximal MCA occlusion. remains on IV heparin. as per neuro 2. AFIB with RVR; rate controlled on Cardizem gtt 3. Hypertension; labile 4. COPD; stable 5. Encephalopathy with underlying dementia 6. COVID; repeat negative x2 7. Dysphagia; passed swallow eval Recommendations Secondary prevention Start metoprolol for rate control; titrate off Cardizem gtt Add lisinopril for BP control Add high-dose statin therapy Supportive care Rehab modalities Anticoagulation as per neuro Plans for rehab upon discharge JAMES AUSTIN APRN Aug 19, 2021 08:41
[2021-08-19] MEDS: LISINOPRIL 10 MG TABLET PO SCH (11:13)
[2021-08-19] MEDS: METOPROLOL TART IMMED RELEASE 25 MG TABLET. PO SCH ×2 (11:14→20:57)
--- NOTE | 2021-08-19 12:20 | NUR ---
This RN paged speech therapy to notify them that rehab is requesting a video swallow prior to discharge per case management, speech said they would get in touch with their director and the radiologist to get that scheduled, but that she did not believe it would be today. Message left with Dr Chew to return call regarding anticoagulation therapy as cardiology has stated it is per neuro. Addendum: 08/19/21 at 1803 by ROSINA LOW RN Dr Chew had not returned call so this RN called him again at 1700. He stated he would look into the chart and call back with orders.
[2021-08-19] MEDS: HEPARIN 25,000UTS/250ML PREMIX 250 ML IV PRN (13:30)
--- NOTE | 2021-08-19 16:06 | RAD ---
EXAM: CT head without contrast INDICATION: Known infarct with right MCA occlusion on CTA head 08/16/2021. Evaluate for hemorrhagic t ransformation. COMPARISON: CTA head and neck 08/16/2021. CT head 08/03/2021. TECHNIQUE: Axial CT imaging through the head without intravenous contrast. One or more of the following individualized dose reduction techniques were utilized for this examinat ion: 1. Automated exposure control 2. Adjustment of the mA and/or kV according to patient size 3. Use of iterative reconstruction technique. FINDINGS: There is a new large area of hypoattenuation with loss of pemberton-white matter differentiation in the ri ght frontal, parietal, and temporal lobes consistent with large right MCA territory subacute infarct. There is mild diffuse sulcal narrowing in the right cerebral hemisphere. Mild narrowing of the right lateral ventricle. Left lateral, third and fourth ventricles are normal. There is no midline shift. No intracranial hemorrhage. There is mild to moderate white matter disease seen in the left cerebral hemisphere. Basal cisterns are clear. The calvarium is intact. Paranasal sinuses and mastoid air cell s are clear. Globes and orbits are intact. IMPRESSION: Evolving large subacute infarct in the right MCA territory with mild associated edema. No midline shift. No intracranial hemorrhage. Findings discussed by Dr. Pittman with the ICU nurse at 4:00 PM on 08/19/2021. Electronically signed by: Mariam Pittman MD (08/19/2021 4:04 PM) [id number]
[2021-08-19] MEDS: IV NORMAL SALINE 1,000ML 1,000 ML IV SCH (17:13)
[2021-08-19] MEDS: ATORVASTATIN CALCIUM 20 MG TABLET PO SCH (20:57)
[2021-08-19] MEDS: APIXABAN 5 MG TABLET. PO SCH (20:57)
--- NOTE | 2021-08-19 21:30 | NUR ---
Pt assisted up to chair x2 assist, pt was a max assist and unable to bear her own weight. Pt sat up in chair for about 90mins while getting her hair washed and brushed out. Pt often leaning to the left side, unable to support herself. Pt was able to somewhat wash her face with cues and encouragement with right hand. Pt ate about 25% of a Magic Cup and a few bites of applesauce, pt was 100% total feed. Pt had HS medications crushed in food. Pt noted to have very delayed swallowing (15-35 seconds) and required much prompting. No coughing noted after PO intake. Pt assisted back to bed x2 assist and promptly went to sleep. Dr Chew called with orders, stop Heparin gtt and start on Eliquis 5mg BID. Denture and King care completed before bed.
[2021-08-20] VITALS (19 sets, daily range): BP systolic 131–185; BP diastolic 70–102
--- NOTE | 2021-08-20 01:04 | PN ---
DATE: 08/19/2021 SUBJECTIVE: The patient is sitting in her recliner, slightly propped up in bed, continued to have right sided conjugate gaze. She has flaccid paralysis of her left upper and left lower extremity. She is able to move her right upper and right lower extremity. She apparently did well on her swallowing evaluation that was done at bedside and she is now on pureed diet, nectar thickened liquid. Apparently, the recommendation now was for her to go to rehab center and with the [facility] and [facility] are so far reluctant to take care and recommended they wanted video swallowing evaluation. She continued to be on Cardizem drip, heparin drip and PPN. PHYSICAL EXAMINATION: GENERAL: When I saw her today, she was somewhat pale, cachectic, but no jaundice, cyanosis or thyromegaly. No jugular venous distention. No limb edema. VITAL SIGNS: Her heart rate was 76, blood pressure was 165/81, temperature was 99, respiratory rate 23, and oxygen saturation was 96% on room air. HEAD, EYES, EARS, NOSE AND THROAT: Showed she is normocephalic, she had fall and bruises on the right cheek. NECK: Supple. HEART: Showed normal first and second heart sounds, no gallop or murmur. CHEST: Clear to auscultation. No crepitation or rhonchi. ABDOMEN: Slightly distended, soft, nontender. NEUROLOGIC: She is awake, alert. She has marked dysarthria and difficult to understand, although she sometimes able to mouth few words clearly. She has right sided conjugate gaze and flaccid paralysis of her left upper and left lower extremity. She has an indwelling King catheter. Her intake over the last 24 hours was 2300, output was 2000. LABORATORY DATA: This morning showed a white cell count of 14,000, hemoglobin 13, hematocrit 39, MCV 92 and platelet count of 353,000. Her chemistry showed a serum sodium of 128, potassium 4.3, chloride 96, bicarbonate 26, anion gap of 6, BUN 23, creatinine was 0.8. Her glucose was 104, calcium was 8.4. Total bilirubin, AST, ALT, alkaline phosphatase were normal. Total protein 7.3, albumin was 2.8. Her APTT was 50. ASSESSMENT: 1. 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 2. She has severe atherosclerotic peripheral arterial disease. 3. Chronic obstructive pulmonary disease. 4. Hypertension. 5. Alcoholism. 6. New onset atrial fibrillation with rapid ventricular response, rate controlled, well anticoagulated. 7. Dysphagia for which she was seen by the speech therapist and has had a bedside evaluation and she is now on a pureed diet, nectar thickened liquid. PLAN: To obviously to switch her to oral anticoagulation, probably Xarelto 10 mg twice a day for 7 days, also switched her to Cardizem, obviously she is able to swallow and her hyponatremia is probably because of PPN and I will switch her to some form of normal saline to replenish her sodium, meanwhile we will continue with physical and occupational therapy. ZOE DR: Venkat TID: [id number]
[2021-08-20] MEDS: hydrALAZINE 20 MG/ML VIAL. IV PRN (05:05)
[2021-08-20] MEDS: IV NORMAL SALINE 1,000ML 1,000 ML IV SCH ×3 (05:06→20:51)
[2021-08-20 05:55] LABS: HEMATOCRIT 38.6 % (36.0-47.0); HEMOGLOBIN 13.2 g/dL (12.0-15.5); RED BLOOD COUNT 4.22 x10^6/uL (3.50-5.40); RED CELL DISTRIBUTION WIDTH 14.1 % (11.5-14.5); WHITE BLOOD COUNT 8.5 x10^3/uL (4.0-11.0)
[2021-08-20 06:13] LABS: CALCIUM 8.1 mg/dL (8.5-10.1); CREATININE 0.8 mg/dL (0.6-1.0); GFR 71.5; POTASSIUM 3.6 mmol/L (3.5-5.1)
--- NOTE | 2021-08-20 06:15 | PN ---
DATE: 08/19/2021 SUBJECTIVE: The patient has no significant change in mental status; however, she sometimes says some words. OBJECTIVE: GENERAL: Thin female, not in acute distress. VITAL SIGNS: Blood pressure 166/73, respiratory rate 18, pulse is 90, oxygen saturation 95% on room air. HEENT: Normocephalic. The patient has multiple ecchymotic areas over the right face secondary to recent fall. NECK: Supple. Negative for carotid bruit, lymphadenopathy or thyromegaly. LUNGS: With diminished breath sounds. CARDIOVASCULAR: Irregularly irregular rhythm. Normal S1, S2. ABDOMEN: Soft. EXTREMITIES: Negative for cyanosis, clubbing or pedal edema. NEUROLOGIC: Mental status: The patient is awake, but occasionally says some words. She sometimes follows 1-step commands. Otherwise, she stays silent, noncommunicative most of the time. Further evaluation is limited at this time. Cranial nerves unremarkable. Motor examination consistent with flaccid dense left hemiparesis. Sensory examination, left hemisensory deficit. Deep tendon reflexes were hypoactive with positive Babinski on the left side. Gait not tested. LABORATORY DATA: CBC revealed blood cells of 14.1, hemoglobin 13.4, hematocrit 39.9, platelet count 353,000. Chemistry reveals sodium 128, potassium 4.3, chloride 96, CO2 of 26, BUN 23, creatinine 0.8, glucose 104, calcium 8.4. IMPRESSION: 1. Acute stroke due to occlusion of the right middle cerebral artery, resulted in dense left hemiparesis and left hemisensory deficit. Rule out cardiac embolism, possibly induced by new onset of atrial fibrillation. 2. Multiple medical problems includes hypertension, atrial fibrillation, chronic obstructive pulmonary disease. RECOMMENDATIONS: 1. Considering the age, creatinine and weight, we will stop heparin drip and start the patient on Eliquis 5 mg twice daily. 2. Await echocardiogram tomorrow. 3. Continue with current rehabilitation and speech therapy. GIA DR: Stacey TID: [id number]
[2021-08-20] MEDS: METOPROLOL TART IMMED RELEASE 25 MG TABLET. PO SCH (08:39)
[2021-08-20] MEDS: APIXABAN 5 MG TABLET. PO SCH ×2 (08:39→20:50)
[2021-08-20] MEDS: LISINOPRIL 10 MG TABLET PO SCH (08:39)
--- NOTE | 2021-08-20 09:31 | PDOC ---
CARDIO Progress Notes Date & Time Date of Service DATE: 08/20/21 TIME: 08:21 Time of Evaluation 09:21 Subjective Notes No chest pain, palpitations, SOA Vitals Vitals Vital Signs Date Time Temp Pulse Resp B/P (MAP) Pulse Ox O2 Delivery O2 Flow Rate FiO2 08/20/21 09:16 100.7 93 163/76 (105) 95 Room Air 08/20/21 08:00 16 08/18/21 00:17 2.0 Weight Weight [ ] Input and Output I.O. Intake and Output 08/20/21 07:00 Intake Total 1257 ml Output Total 1375 ml Balance -118 ml Intake Oral 160 ml IV Total 1097 ml Output Urine Total 1375 ml Laboratory Labs Laboratory Tests Test 08/18/21 13:30 08/19/21 05:43 08/19/21 13:46 08/20/21 05:35 Coronavirus (COVID-19)(PCR) Not detected (NOT DETECTD) White Blood Count 14.1 x10^3/uL (4.0-11.0) 8.5 x10^3/uL (4.0-11.0) Red Blood Count 4.31 x10^6/uL (3.50-5.40) 4.22 x10^6/uL (3.50-5.40) Hemoglobin 13.4 g/dL (12.0-15.5) 13.2 g/dL (12.0-15.5) Hematocrit 39.9 % (36.0-47.0) 38.6 % (36.0-47.0) Mean Corpuscular Volume 92 fL (79-100) 91 fL (79-100) Mean Corpuscular Hemoglobin 31 pg (25-35) 31 pg (25-35) Mean Corpuscular Hemoglobin Concent 34 g/dL (31-37) 34 g/dL (31-37) Red Cell Distribution Width 14.2 % (11.5-14.5) 14.1 % (11.5-14.5) Platelet Count 353 x10^3/uL (140-400) 321 x10^3/uL (140-400) Activated Partial Thromboplast Time 30 SEC (23-33) 50 SEC (23-33) Sodium Level 128 mmol/L (136-145) 127 mmol/L (136-145) Potassium Level 4.3 mmol/L (3.5-5.1) 3.6 mmol/L (3.5-5.1) Chloride Level 96 mmol/L (98-107) 97 mmol/L (98-107) Carbon Dioxide Level 26 mmol/L (21-32) 23 mmol/L (21-32) Anion Gap 6 (6-14) 7 (6-14) Blood Urea Nitrogen 23 mg/dL (7-20) 22 mg/dL (7-20) Creatinine 0.8 mg/dL (0.6-1.0) 0.8 mg/dL (0.6-1.0) Estimated GFR (Cockcroft-Gault) 71.5 71.5 BUN/Creatinine Ratio 29 (6-20) Glucose Level 104 mg/dL (70-99) 88 mg/dL (70-99) Calcium Level 8.4 mg/dL (8.5-10.1) 8.1 mg/dL (8.5-10.1) Total Bilirubin 0.7 mg/dL (0.2-1.0) Aspartate Amino Transf (AST/SGOT) 39 U/L (15-37) Alanine Aminotransferase (ALT/SGPT) 29 U/L (14-59) Alkaline Phosphatase 69 U/L (46-116) Total Protein 7.3 g/dL (6.4-8.2) Albumin 2.3 g/dL (3.4-5.0) Albumin/Globulin Ratio 0.5 (1.0-1.7) Microbiology Micro Microbiology 08/16/21 Blood Culture - Preliminary, Resulted NO GROWTH AFTER 3 DAYS... Physical Exams HEENT: Neck Supple W Full Motion Chest: Symmetric Lungs: Clear to Auscultation Heart: irregularly irregular (AFIB, rate mildly elevated ) Abdomen: Soft N/T Extremities: No Edema Neurology: alert, follow commands, other (left side paralysis ) Assessment Assessment 1. Acute CVA; CTA with right proximal MCA occlusion. remains on IV heparin. as per neuro 2. AFIB with RVR; rate intermittently elevated overnight 3. Hypertension; labile 4. COPD; stable 5. Encephalopathy with underlying dementia 6. COVID; repeat negative x2 7. Dysphagia; passed swallow eval 8. Fevers; BC negative Recommendations Secondary prevention Increase metoprolol for better rate control Continue lisinopril High-dose statin therapy Echocardiogram today Anticoagulation as per neuro Supportive care JAMES AUSTIN DRAG DOWN Aug 20, 2021 09:31
[2021-08-20] MEDS ORDERED: METOPROLOL TART IMMED RELEASE 25 MG TABLET. PO ONE (10:45)
[2021-08-20] MEDS ORDERED: ACETAMINOPHEN 650 MG SUPP.RECT. PR PRN (10:45)
[2021-08-20] MEDS: METOPROLOL TARTRATE 5 MG/5 ML VIAL. IV SCH ×3 (12:30→22:41)
--- NOTE | 2021-08-20 18:36 | NUR ---
Pt noticeably more lethargic this AM. Video swallow study ordered. Pt unable to sit up independently or initiate swallow. Pt made NPO per speech therapy. Dr. Oreilly informed. Family contacted and discussed plan of care. Will proceed with hospice care.
[2021-08-20] MEDS: ATORVASTATIN CALCIUM 20 MG TABLET PO SCH (20:50)
[2021-08-20] MEDS ORDERED: METOPROLOL TART IMMED RELEASE 25 MG TABLET. PO SCH (21:00)
--- NOTE | 2021-08-21 00:30 | PN ---
DATE: 08/20/2021 SUBJECTIVE: The patient is resting, slightly propped up in bed, in no apparent respiratory distress. She is definitely less responsive than yesterday. She continued to have conjugate gaze to the right side and flaccid paralysis on the left. Her CT scan of the head done yesterday as she was concerned that she might have hemorrhagic transformation. It showed that there is a new large area of hypoattenuation and loss of pemberton-white matter differentiation in the right frontal, parietal and temporal lobes consistent with a large right middle cerebral artery territory subacute infarct. There is also mild diffuse sulcal narrowing of the right cerebral hemisphere and mild narrowing of the right lateral ventricle, left lateral third and fourth ventricles are normal. There is no midline shift, no intracranial hemorrhage. There is a mild to moderate white matter disease seen at the left cerebral hemisphere. However, her basal cisterns are clear. The calvarium is intact. Paranasal sinuses and mastoid air cells are clear. Globes and orbits are intact. She was seen today by the speech and language pathologist and apparently she failed swallowing and she is now n.p.o. I did speak with our social security specialist to talk to the family regarding goals of care as apparently the patient has made it clear that she does not want to have any feeding tube placed and obviously hospice is the only alternative option. OBJECTIVE: GENERAL: On examining her, she was somewhat pale, but not jaundiced, cyanosed, no lymphadenopathy, no thyromegaly, no jugular venous distention. No limb edema. VITAL SIGNS: Her heart rate was 93, blood pressure was 159/87, temperature was 100.7, respiratory rate was 14 and oxygen saturation was 96% on room air. The rest of clinical exam stable. NEUROLOGIC: She has a flaccid left upper and lower limb paralysis. Her intake over the last 24 hours was 2300, output was 2000. LABORATORY DATA: As of this morning showed a white cell count of 8500, hemoglobin 13, hematocrit 39, MCV 91, and platelet count 321,000. Serum sodium was 127, potassium 3.6, chloride 97, bicarbonate 23, anion gap of 7, BUN 22, creatinine 0.8. Estimated GFR was 71 mL per minute. Her glucose was 88 and calcium was 8.1. ASSESSMENT: 1. New-onset left-sided hemiplegia with total occlusion of the right middle cerebral artery, apparently with the timing of the stroke is unknown and she was not a candidate for thrombolytic therapy or thrombectomy. 2. She has severe atherosclerotic peripheral arterial disease. 3. Chronic obstructive pulmonary disease. 4. Hypertension. 5. Alcoholism. 6. New-onset atrial fibrillation with rapid ventricular response. 7. Dysphagia and unfortunately the patient has failed her swallowing evaluation. PLAN: To continue with IV fluid. Await the outcome discussion with the family regarding further management. URBANO DR: Venkat TID: [id number]
--- NOTE | 2021-08-21 01:10 | PN ---
SUBJECTIVE: The patient continued to have generalized weakness, difficulty to communicate and left-sided weakness. OBJECTIVE: GENERAL: A thin female in no acute distress. She weighs 56.2 kilos. VITAL SIGNS: Blood pressure 159/87, respiratory rate 14, pulse is 93 and regular, temperature is 98.9, oxygen saturation 96% on room air. HEENT: Normocephalic, but has multiple ecchymotic areas over the right side of the base of the face secondary to recent falls. NECK: Supple. Negative for carotid bruit, lymphadenopathy or thyromegaly. LUNGS: Clear to A and P. CARDIOVASCULAR: Regular rhythm. Normal S1, S2. ABDOMEN: Soft. EXTREMITIES: Negative for cyanosis, clubbing or pedal edema. NEUROLOGIC: The patient is awake, but has difficulty to communicate. She might follow one-step commands. Otherwise, further mental status evaluation is limited at this time. Cranial nerves: Pupils are equal and reactive to light and extraocular movements are slow, but no nystagmus. There is no apparent facial asymmetry, otherwise unchanged. Motor examination consistent with dense left hemiparesis and left hemisensory deficits. Deep tendon reflexes were symmetric and hypoactive with absent Achilles responses. Babinski is positive on the left side. Gait, not able to perform. LABORATORY DATA: CBC revealed while blood cells of 8.5 thousand, hemoglobin 13.2, hematocrit 38.6, platelet count 321,000. Chemistry revealed sodium of 127, potassium 3.6, chloride 97, CO2 of 23, BUN 22, creatinine 0.8 and glucose is 88, calcium 8.1. IMPRESSION: 1. Status post acute stroke resulted in dense left hemiparesis and left hemisensory deficit with speech dysfunction. 2. New onset of atrial fibrillation. 3. Multiple medical problems include hypertension and chronic obstructive pulmonary disease. RECOMMENDATIONS: 1. Continue with current medications. 2. Continue with Eliquis 5 mg b.i.d. 3. Await echocardiogram. 4. Continue with stroke rehabilitation. GERALDINE/JESSICA DR: Stacey TID: [id number]
[2021-08-21 03:00] VITALS: BP 194/91
[2021-08-21] MEDS: hydrALAZINE 20 MG/ML VIAL. IV PRN (03:32)
[2021-08-21 04:02] VITALS: BP 152/71
[2021-08-21] MEDS: METOPROLOL TARTRATE 5 MG/5 ML VIAL. IV SCH ×2 (06:10→11:49)
[2021-08-21] MEDS: LISINOPRIL 10 MG TABLET PO SCH (07:32)
[2021-08-21] MEDS: APIXABAN 5 MG TABLET. PO SCH (07:32)
[2021-08-21 07:34] VITALS: BP 164/69
[2021-08-21 11:28] VITALS: BP 166/81
[2021-08-21 11:49] VITALS: BP 166/81
--- NOTE | 2021-08-21 12:08 | DISCH ---
DISCHARGE ORDERS DISCHARGE DATE: Aug 21, 2021 FINAL DIAGNOSIS Right MCA INFARCT LEFT SIDED HEMIPLEGIA Aphasia CONDITION AT DISCHARGE: Guarded Code Status: DNR/DNI HOSPICE: Yes HOSPICE EVALUATE & TREAT: Yes POST DISCHARGE ORDERS: ACTIVITY ORDERS: Activity as tolerated WEIGHT BEARING STATUS: As tolerated DIET AFTER DISCHARGE: NPO DISCHARGE MEDICATIONS: Home Meds Reported Medications Hydrochlorothiazide (HYDROCHLOROTHIAZIDE TABLET ) 25 Mg Tablet, 1 TAB PO DAILY, #30 TAB 5 Refills 09/16/15 Hydralazine Hcl (HYDRALAZINE HCL) 25 Mg Tablet, 1 TAB PO QID, #90 TAB 5 Refills 09/16/15 Lisinopril (LISINOPRIL) 20 Mg Tablet, 1 TAB PO DAILY, #30 TAB 5 Refills 09/16/15 HILARIO LEDEZMA MD Aug 21, 2021 12:08
--- NOTE | 2021-08-21 13:40 | NUR ---
pt left via ems at approx 1330. all belongings with the pt at the time of discharge pts four rings on right hand at discharge pt left with koch in place.
--- NOTE | 2021-08-21 14:50 | PN ---
SUBJECTIVE: The patient has generalized weakness and difficulty to communicate with left-sided weakness since admission without significant change. OBJECTIVE: GENERAL: A thin female not in acute distress. VITAL SIGNS: Blood pressure 164/69, respiratory rate 16, pulse is 91, temperature is afebrile, oxygen saturation is 96% on room air. HEENT: Normocephalic. There is an ecchymotic lesion over the left side secondary to recent fall. NECK: Supple, negative for carotid bruit, lymphadenopathy or thyromegaly. LUNGS: Diminished breath sounds bilaterally. CARDIOVASCULAR: Irregularly irregular rhythm. Normal S1, S2. ABDOMEN: Soft. EXTREMITIES: Negative for cyanosis, clubbing or pedal edema. NEUROLOGIC: Mental status: The patient is awake, but noncommunicative. Cranial nerves: No asymmetry, otherwise unchanged. Motor examination consistent with dense left hemiparesis, flaccid left hemiparesis with left hemisensory deficit. Deep tendon reflexes were symmetric and hypoactive with Babinski on the left side. IMPRESSION: 1. Status post acute stroke resulted in dense left hemiparesis and left hemisensory deficit. 2. Atrial fibrillation. 3. Multiple medical problems include hypertension, chronic obstructive pulmonary disease. RECOMMENDATIONS: Continue with current management initiated by Dr. Oreilly. The patient is going to have a hospice service. GERALDINE/FABIO DR: GERALDINE/angie TID: [id number]
== END 2021-08-21 13:30 | disposition hospice, inpatient (51) | DRG 64 ==
LOC: ER 05:36 → ICU 12:24
PROVIDERS: ADMIT Internal Medicine; ATTEND Internal Medicine
DX: I63.511 Cerebral infarction due to unspecified occlusion or stenosis of right middle cerebral artery (principal); U07.1 COVID-19; G81.94 Hemiplegia, unspecified affecting left nondominant side; G93.40 Encephalopathy, unspecified; I10 Essential (primary) hypertension; I48.91 Unspecified atrial fibrillation; Z66 Do not resuscitate; I70.209 Unspecified atherosclerosis of native arteries of extremities, unspecified extremity; F03.90 Unspecified dementia, unspecified severity, without behavioral disturbance, psychotic disturbance, mood disturbance, and anxiety; J44.9 Chronic obstructive pulmonary disease, unspecified; F41.9 Anxiety disorder, unspecified; F32.A Depression, unspecified; F10.10 Alcohol abuse, uncomplicated; R13.10 Dysphagia, unspecified; Z88.1 Allergy status to other antibiotic agents; Z98.51 Tubal ligation status; Z91.81 History of falling; Z91.14 Patient's other noncompliance with medication regimen; Z87.891 Personal history of nicotine dependence; Z86.73 Personal history of transient ischemic attack (TIA), and cerebral infarction without residual deficits; Z79.899 Other long term (current) drug therapy
CPT/HCPCS: 36415; 70450; 70496; 70498; 71250; 74176; 80048; 80053; 80061; 81001; 83605; 83735; 84484; 85025; 85027; 85610; 85730; 87040; 87426; 92526; 93005; 96361; 96374; 96375; 97163; J0360; J1644; J3490; J7120; Q9967; U0003; 92610; 97530; 99285-25; J7030